=== PATIENT | male | born 1975 | race Caucasian/White ===

== ENCOUNTER 2017-04-08 18:24 | Emergency (ER) | payer OTHER ==
[~2017-04-08] VITALS: Ht 182.9 cm; Wt 117.0 kg
[~2017-04-08 18:24] MED LIST: LISI20TA PO
[2017-04-08 18:27] VITALS: TEMP 36.5; Ht 182.9 cm; Wt 117.0 kg
[2017-04-08] MEDS ORDERED: DOXYCYCLINE HYCLATE 100 MG CAP PO STA (18:47)
[2017-04-08] MEDS ORDERED: DOXY-300 PO (18:51)
[2017-04-08] MEDS ORDERED: METO25TA3 PO (19:01)
[2017-04-08] MEDS ORDERED: METOPROLOL SUCC 50MG EXT REL TAB PO ONE (19:09)
[2017-04-08] MEDS ORDERED: METOPROLOL SUCC 25MG EXT REL TAB PO ONE (19:15)
[2017-04-08 19:55] LABS: LYME DISEASE AB IGM NEG (NEG)
[2017-04-08 19:56] LABS: LYME DISEASE AB IGG NEG (NEG)
[2017-04-08 20:10] VITALS: BP 209/128; PULSE 93; O2SAT 95
--- NOTE | 2017-04-08 21:10 | EMERGENCY ROOM VISIT NOTE ---
ED Visit Note First contact with patient: 18:37 Chief Complaint: Rash. History of Present Illness: Mr. Luu is a 41-year-old white male who ambulates into the ED accompanied by his daughter complaining of a bullet like lesion over the proximal aspect of the medial right humerus. Patient reports he has been doing a lot of her he picking over the last few weeks. He reports he does check himself every night and has not noted any tick bites. Then today he noticed an itchy area over the proximal aspect of the medial right humerus and when he looked at this area it appeared to have a bullet lesion. He did become concerned and came to the emergency department for further evaluation and care. Associated with the lesion he does report his skin is itchy in the area. He has not taken any medication for the actual lesion or the itchiness. He denies any associated symptoms including fevers, chills, sweats, other skin eruptions, other skin color changes, headaches, joint pains, chest pain, shortness of breath, abdominal pain, nausea, vomiting, upper extremity weakness/numbness/ tingling. It is also noticed that while in the emergency department he is hypertensive with a blood pressure of 209/128. When questioned patient does report he takes antihypertensives but doesn't remember their name. He reports he hasn't taken his medication today. He was able to give me the pharmacy number where he gets his medications filled and when this was checked with the medicine reconciliation staff they called the pharmacy and they report he has not refilled his Toprol-XL 25 mg since November of this year. Associated with the patient's hypotension he reports he has not had any fevers including headaches, dizziness, lightheadedness and the symptoms that were noted above. Review of Systems: As noted above in history of present illness. 8 body systems were reviewed and found to be negative as noted above. Past Medical History: As previously noted. Current Medications: As previously noted. Allergies to Medications: Patient denies. Social History: Patient is not employed; he lives with his family and feels safe in his home environment; he denies tobacco and alcohol use. Physical Examination: Vital Signs: Date Time Temp Pulse Resp B/P (MAP) Pulse Ox O2 Delivery O2 Flow Rate FiO2 04/08/17 20:10 93 18 209/128 95 Room Air 04/08/17 18:27 36.5 87 19 209/128 96 Room Air GENERAL: 41-year-old male in no acute distress, nontoxic-appearing, afebrile and hypertensive. NEUROLOGICAL: Awake, alert and oriented to person, place and time. Answering questions appropriately and following commands. Normal gait. Good hand eye coordination. No focal motor or sensory deficits. Cranial nerves II through XII grossly intact. SKIN: Warm, dry and pink. Right Upper Extremity: Over the medial aspect of the proximal humerus patient has a mildly erythematous round lesion with central clearing. No lymphangitis. No warmth or appearance of cellulitis. HEENT: Atraumatic and normocephalic. PERRLA. EOMI. Funduscopic examination shows a normal-appearing disc with no signs of increased intracranial pressure. Sclera white and conjunctiva pink. Airway patent. Speech normal. No carotid bruits. Trachea midline. No jugular venous distention. BACK: No tenderness over the bony spine. No CVA tenderness. THORAX: Lungs sounds are clear to auscultation and equal bilaterally with symmetrical chest wall. No wheezing, rales or rhonchi. No crepitus, tenderness , subcutaneous air or deformities noted. HEART: Regular rate and rhythm. No gallops, rubs or murmurs are appreciated. ABDOMEN: Flat, soft and nontender. Positive bowel sounds in all quadrants. No guarding, rigidity or organomegaly. EXTREMITIES: Moves all extremities well on command and with purpose. All distal neurovascular statuses are intact and equal bilaterally. No calf tenderness or cords. ED Course: Patient is assessed as noted above. Patient's medication list was reviewed. Laboratory Testing: Pending. EKG: Was read by myself and reviewed with Dr. Tejada' shows normal sinus rhythm with a ventricular rate of 64 bpm. Left ventricular hypertrophy was noted. No acute ischemic changes. This was compared to a previous from May 2010 in no acute changes were noted. Patient was given 100 mg of doxycycline by mouth for antibiotic prophylaxis. Patient was given 25 mg of Toprol-XL by mouth. Patient's case was reviewed with Dr. Tejada; we agreed on diagnostic approach, treatment, disposition and plan. Patient was educated about today's findings and instructed on his treatment plan ; he verbalizes understanding and agreement with this plan. Clinical Impression: Erythema migrans. Hypertension. Disposition: Patient discharged home in stable condition; prior to departure he was reassessed and remained pain and symptom-free at this time. Plan: Erythema migrans: Patient was prescribed doxycycline 100 mg 2 times a day for 14 days. Patient was encouraged to follow-up with family physician for recheck and final testing results. Patient was encouraged return to the ED for headaches, vomiting, joint pains, fevers or any new/concerning symptoms. Hypertension Patient was encouraged to take his Toprol every day as prescribed. Patient was encouraged to have close follow-up with his family doctor for recheck of his blood pressure. Patient was encouraged return the ED for any symptoms associated with high blood pressure including headache, dizziness, chest pain, shortness of breath, vomiting or any new/concerning symptoms.
== END 2017-04-08 20:24 | disposition home or self-care (01) ==
LOC: C.EDB 18:25 → C.EDD 20:24
DX: A26.0 Cutaneous erysipeloid (principal); I10 Essential (primary) hypertension

== ENCOUNTER 2020-05-17 12:09 | Observation (INO) ==
[2020-05-17] MEDS ORDERED: SODIUM CHLORIDE 0.9% 1000ML 1,000 ML IV ONE (12:23)
--- NOTE | 2020-05-17 12:37 | Emergency Department Note ---
History of Present Illness General Chief complaint: Swelling/Edema to Extremity Stated complaint: LT LEG SWELLING Time Seen by Provider: 05/17/20 12:23 History of Present Illness Provider complaint: Left leg swelling fever Onset (ago): week(s) 1 Location: lower extremity and left Radiation: non-radiation Pain Consistency: + constant Maximum Pain Intensity: 10 Current Pain Intensity: 10 Quality: + aching Relieved By: + none Associated symptoms: + fever/chills and + rash; no cough, no headaches, no nausea/vomiting, no seizure, no shortness of breath, no syncope and no weakness 44-year-old male presents emergency department for left lower extremity rash and fever. Patient reports that he has had symptoms for the last week. He states he [place] in [place] when a branch scraped him and then he started getting the redness around the scrape. He states he came to the emergency department when he was giving IV antibiotics and also given oral antibiotics, Keflex. He states he has been taking all of his Keflex. He states he does not think it is working as the redness is gotten worse and he developed a fever today. No cough, loss of taste or smell, headache, abdominal pain, vomiting, or drainage from the wound. Home Medications Home Medications Medication Instructions Recorded Confirmed Type cephalexin [Keflex] 500 mg PO QID 10 Days #40 cap 05/12/20 05/17/20 Rx amlodipine 10 mg PO QAM 05/17/20 05/17/20 History chlorthalidone 25 mg PO QAM 05/17/20 05/17/20 History losartan 100 mg PO QAM 05/17/20 05/17/20 History ondansetron HCl [Zofran] 4 mg PO TID PRN 05/17/20 05/17/20 History Allergies Allergy/AdvReac Type Severity Reaction Status Date / Time No Known Allergies Allergy Mild Unverified 05/17/20 13:49 Past Med/Surg History Medical History (Updated 05/17/20 @ 14:18 by Aniket Perera) Abrasion of left lower leg (Acute) Cellulitis of left leg (Acute) Hypertension (Inactive) No pertinent family history Surgical History (Updated 05/17/20 @ 12:34 by Aniket Perera) No pertinent past surgical history Social History Smoking Status: Never smoker Preferred Language: Bangladeshi Feels Safe at Home: Yes Review of Systems A total of 10 systems reviewed and were otherwise negative Physical Exam Vital Signs Vital Signs - 24 hr 05/17/20 12:18 05/17/20 12:31 05/17/20 13:00 Temperature 37.8 C H Temperature Source Oral Pulse Rate 113 H 112 H 106 H Pulse Rate from SpO2 Sensor Respiratory Rate 22 24 Respiratory Effort / Characteristics Non-Labored Respiratory Depth Normal Respiratory Pattern Regular Blood Pressure 173/138 H Blood Pressure Mean 149 Blood Pressure Position Sitting Pulse Oximetry 97 Oxygen Delivery Method Room Air Sepsis Recent Fever Within 48 Hours Yes Sepsis New/Unexplained Change in Mental Status No Sepsis Action Taken by Nursing Physician Notified 05/17/20 13:09 05/17/20 13:10 05/17/20 13:30 Temperature Temperature Source Pulse Rate 108 H 103 H 100 H Pulse Rate from SpO2 Sensor 106 H 103 H 102 H Respiratory Rate 24 Respiratory Effort / Characteristics Respiratory Depth Respiratory Pattern Blood Pressure 182/121 H 192/123 H Blood Pressure Mean 147 149 Blood Pressure Position Pulse Oximetry 96 96 95 Oxygen Delivery Method Sepsis Recent Fever Within 48 Hours Sepsis New/Unexplained Change in Mental Status Sepsis Action Taken by Nursing 05/17/20 13:31 Temperature Temperature Source Pulse Rate 100 H Pulse Rate from SpO2 Sensor 102 H Respiratory Rate 24 Respiratory Effort / Characteristics Respiratory Depth Respiratory Pattern Blood Pressure Blood Pressure Mean Blood Pressure Position Pulse Oximetry 97 Oxygen Delivery Method Sepsis Recent Fever Within 48 Hours Sepsis New/Unexplained Change in Mental Status Sepsis Action Taken by Nursing Physical Exam GENERAL: He is oriented to person, place, and time. He appears well-developed and well-nourished. He does not appear distressed. HENT: Exam performed. - Head: Normocephalic and atraumatic. - Right Ear: External ear normal. No mastoid tenderness. - Left Ear: External ear normal. No mastoid tenderness. - Mouth/Throat: The oropharynx is clear and moist. No trismus in the jaw. No dental abscesses or uvula swelling. No oropharyngeal exudate or tonsillar abscesses. EYES: Conjunctivae and EOM are normal. Pupils are equal, round, and reactive to light. Right eye exhibits no discharge. Left eye exhibits no discharge. No scleral icterus. NECK: Normal range of motion. Neck supple. No JVD present. No spinous process tenderness present. No carotid bruit present. No rigidity. No tracheal deviation and normal range of motion present. No Brudzinski's sign and no Kernig's sign noted. CV: Tachycardic rate, regular rhythm, normal heart sounds and intact distal pulses. There is no peripheral edema. Palpable radial pulses bue. PULM/CHEST: Effort normal and breath sounds normal. No respiratory distress. No stridor. He has no wheezes. He has no rales. - Chest Wall: He exhibits no tenderness. ABD: The abdomen is soft. Bowel sounds are normal. He has no distension. No mass is present. There is no tenderness. There is no rebound, no guarding, no Maddox's sign and no tenderness at McBurney's point. Rovsig negative. MUSC/SKEL: Normal range of motion. There is no peripheral edema, tenderness or deformity. LYMPH: No cervical adenopathy. NEURO: He is alert and oriented to person, place, and time. He has normal strength. No cranial nerve deficit or sensory deficit. Coordination and gait normal. GCS eye subscore is 4. GCS verbal subscore is 5. GCS motor subscore is 6. Cerebellar tests wnl. SKIN: Abrasion over the left lower extremity perez with surrounding erythema. There is no discharge. No fluctuant area. It is warm to touch and tender. Nikolsky negative. No vesicles. Patient's rash is consistent with the appearance of cellulitis. PSYCH: He has a normal mood and affect. Behavior is normal. Judgment and thought content normal. Course Course 1223: The patient was evaluated in room B6. A complete history and physical exam was performed. Patient was found to be febrile and tachycardic on arrival. Sepsis protocols were initiated. Cardiac monitoring: An order was placed for continuous cardiac monitoring. The monitor shows a rate of 116 with sinus tachycardia rhythm EMR reviewed. This is the patient's third visit to the emergency department in the last 5 days. He was seen on the emergency department on May 12, 5 days ago twice. On May 12 he was diagnosed with cellulitis. He had blood work done which was within normal limits. Lyme screening was within normal limits. Patient was discharged with prescription Keflex. Later that evening the patient came into the emergency department with headache. He had a CAT scan of the head which was negative and he was discharged home. Patient refusing rectal temperature. 1334: Labs show minimally elevated white blood cell count of 11.5. Lactic acid within normal limits. Patient treated with vancomycin for cellulitis. Discus sed the case with [facility] hospitalist Dr. Rizvi. Patient will be admitted for cellulitis failed outpatient treatment. Administered Medications Vancomycin HCl 2,250 mg/ (Sodium Chloride) 545 mls @ 200 mls/hr IV NOW ONE Stop: 05/17/20 15:22 Last Admin: 05/17/20 13:10 Dose: 200 mls/hr Documented by: [id number] Discontinued Medications Acetaminophen (Tylenol) 1,000 mg PO NOW STA Stop: 05/17/20 12:41 Last Admin: 05/17/20 12:48 Dose: 1,000 mg Documented by: [id number] Sodium Chloride (Nss 1000ml) 1,000 mls @ 999 mls/hr IV .Q1H1M ONE Stop: 05/17/20 13:23 Last Infusion: 05/17/20 13:45 Dose: 0 mls/hr Documented by: [id number] Admin: 05/17/20 12:48 Dose: 999 mls/hr Documented by: [id number] Medical Decision Making Laboratory Data Result diagrams: 05/17/20 12:37 05/17/20 12:37 Lab Results 05/17/20 05/17/20 05/17/20 Range/Units 12:37 12:37 12:37 WBC 11.54 H (4.8-10.8) K/uL RBC 5.10 (4.7-6.1) M/uL Hgb 15.2 (14.0-18.0) g/dL Hct 43.6 (42-52) % MCV 85.5 (80-100) fL MCH 29.8 (25-34) pg MCHC 34.9 (32-36) g/dL RDW Std Deviation 39.5 (36.4-46.3) fL RDW Coeff of [place] 12.6 (11.5-14.5) % Plt Count 296 (130-400) K/uL MPV 8.9 (7.4-10.4) fL Immature Gran % (Auto) 0.2 % Neut % (Auto) 82.6 % Lymph % (Auto) 9.7 % [place] % (Auto) 6.7 % Eos % (Auto) 0.6 % Baso % (Auto) 0.2 % Neut # (Auto) 9.54 H (1.4-6.5) K/uL Lymph # (Auto) 1.12 L (1.2-3.4) K/uL [place] # (Auto) 0.77 H (0.11-0.59) K/uL Eos # (Auto) 0.07 (0-0.5) K/uL Baso # (Auto) 0.02 (0-0.2) K/uL Immature Gran # (Auto) 0.02 (0.00-0.02) K/uL PT 10.8 (9.0-12.0) Seconds INR 1.0 (0.9-1.1) APTT 32.2 H (21.0-31.0) Seconds PTT Ratio 1.2 Sodium 138 (136-145) mmol/L Potassium 3.5 (3.5-5.1) mmol/L Chloride 100 (98-107) mmol/L Carbon Dioxide 27 (21-32) mmol/L Anion Gap 11.0 (3-11) BUN 12 (7-18) mg/dl Creatinine 0.87 (0.6-1.4) mg/dl Est Cr Clr Drug Dosing 136.2 ml/min Est GFR ( Amer) 120.0 Est GFR (Non-Af Amer) 103.5 BUN/Creatinine Ratio 13.5 (10-20) Glucose 99 (70-99) mg/dl Lactate (0.4-2.0) mmol/L Calcium 9.2 (8.5-10.1) mg/dl Magnesium 2.0 (1.8-2.4) mg/dl Total Bilirubin 0.9 (0.2-1) mg/dl AST 23 (15-37) U/L ALT 23 (12-78) U/L Alkaline Phosphatase 87 (45-117) U/L Total Protein 9.0 H (6.4-8.2) gm/dl Albumin 4.2 (3.4-5.0) gm/dl Globulin 4.8 H (2.5-4.0) gm/dl Albumin/Globulin Ratio 0.9 (0.9-2) /06/28 Range/Units 12:37 WBC (4.8-10.8) K/uL RBC (4.7-6.1) M/uL Hgb (14.0-18.0) g/dL Hct (42-52) % MCV (80-100) fL MCH (25-34) pg MCHC (32-36) g/dL RDW Std Deviation (36.4-46.3) fL RDW Coeff of [place] (11.5-14.5) % Plt Count (130-400) K/uL MPV (7.4-10.4) fL Immature Gran % (Auto) % Neut % (Auto) % Lymph % (Auto) % [place] % (Auto) % Eos % (Auto) % Baso % (Auto) % Neut # (Auto) (1.4-6.5) K/uL Lymph # (Auto) (1.2-3.4) K/uL [place] # (Auto) (0.11-0.59) K/uL Eos # (Auto) (0-0.5) K/uL Baso # (Auto) (0-0.2) K/uL Immature Gran # (Auto) (0.00-0.02) K/uL PT (9.0-12.0) Seconds INR (0.9-1.1) APTT (21.0-31.0) Seconds PTT Ratio Sodium (136-145) mmol/L Potassium (3.5-5.1) mmol/L Chloride (98-107) mmol/L Carbon Dioxide (21-32) mmol/L Anion Gap (3-11) BUN (7-18) mg/dl Creatinine (0.6-1.4) mg/dl Est Cr Clr Drug Dosing ml/min Est GFR ( Amer) Est GFR (Non-Af Amer) BUN/Creatinine Ratio (10-20) Glucose (70-99) mg/dl Lactate 1.1 (0.4-2.0) mmol/L Calcium (8.5-10.1) mg/dl Magnesium (1.8-2.4) mg/dl Total Bilirubin (0.2-1) mg/dl AST (15-37) U/L ALT (12-78) U/L Alkaline Phosphatase (45-117) U/L Total Protein (6.4-8.2) gm/dl Albumin (3.4-5.0) gm/dl Globulin (2.5-4.0) gm/dl Albumin/Globulin Ratio (0.9-2) Imaging Data Radiologist's Impression: SINGLE VIEW CHEST CLINICAL HISTORY: Sepsis. FINDINGS: An AP, portable, upright chest radiograph is compared to study dated 06/08/2010. The heart appears enlarged. The pulmonary vasculature is noncongested. There are low lung volumes. Atelectasis is noted at the lung bases. No airspace consolidation or large pleural effusion is identified. No pneumothorax is seen. The bony thorax is grossly intact. IMPRESSION: Apparent cardiac enlargement with no acute cardiopulmonary abnormality. ACT 112: Negative or not required by law. Electronically signed by: Deonte Perera M.D. 05/17/2020 1:22 PM Dictated: 05/17/20 1319 Transcribed: 05/17/20 1319 ECG Data Indication: + other (Sepsis) Rate (beats per minute): 108 Rhythm: + sinus tachycardia ECG Intervals/blocks: + Normal QRS, + Normal LA and + Normal QT-c ECG ST segments: + Normal ST segments ECG Findings: + LVH MDM Narrative 1223: The patient was evaluated in room B6. A complete history and physical exam was performed. Patient was found to be febrile and tachycardic on arrival. Sepsis protocols were initiated. Cardiac monitoring: An order was placed for continuous cardiac monitoring. The monitor shows a rate of 116 with sinus tachycardia rhythm EMR reviewed. This is the patient's third visit to the emergency department in the last 5 days. He was seen on the emergency department on May 12, 5 days ago twice. On May 12 he was diagnosed with cellulitis. He had blood work done which was within normal limits. Lyme screening was within normal limits. Patient was discharged with prescription Keflex. Later that evening the patient came into the emergency department with headache. He had a CAT scan of the head which was negative and he was discharged home. Patient refusing rectal temperature. 1334: Labs show minimally elevated white blood cell count of 11.5. Lactic acid within normal limits. Patient treated with vancomycin for cellulitis. Discussed the case with [facility] hospitalist Dr. Rizvi. Patient will be admitted for cellulitis failed outpatient treatment. Impression & Plan Cellulitis of left leg Discharge Plan Visit Data Chief Complaint: Swelling/Edema to Extremity Stated Complaint: LT LEG SWELLING ED Provider: Aniket Perera Discharge Problem: Cellulitis of left leg Patient Disposition: Being Evaluated by Hospitalist Forms Stand Alone Forms: [facility] Prescriptions Prescriptions: No Action ondansetron HCl [Zofran] 4 mg tablet 4 mg PO TID PRN (Reason: Nausea And Vomiting) RF: 0 losartan 50 mg tablet 100 mg PO QAM RF: 0 chlorthalidone 25 mg tablet 25 mg PO QAM RF: 0 amlodipine 10 mg tablet 10 mg PO QAM RF: 0 cephalexin [Keflex] 500 mg capsule 500 mg PO QID 10 Days Qty: 40 RF: 0 Referrals Referrals: Edwina Guerrero MD [Primary Care Provider] -
[2020-05-17] MEDS ORDERED: VANCOMYCIN CONSULT ACTIVE PRN (12:39)
[2020-05-17] MEDS ORDERED: VANCOMYCIN HCL 2,250 MG in SODIUM CHLORIDE 0.9% 500 ML IV ONE (12:39)
[2020-05-17] MEDS ORDERED: ACETAMINOPHEN 500 MG TAB PO STA (12:40)
[2020-05-17 12:55] LABS: Basophils # (auto) 0.02 K/uL (0-0.2); Basophils % (auto) 0.2 %; Eosinophils # (auto) 0.07 K/uL (0-0.5); Eosinophils % (auto) 0.6 %; Hematocrit (blood only) 43.6 % (42-52); Hemoglobin 15.2 g/dL (14.0-18.0); Immature Granulocytes # (auto) 0.02 K/uL (0.00-0.02); Immature Granulocytes % (auto) 0.2 %; Lymphocytes # (auto) 1.12 K/uL (1.2-3.4); Lymphocytes % (auto) 9.7 %; Mean Corpuscular Hemoglobin 29.8 pg (25-34); Mean Corpuscular Hgb Conc 34.9 g/dL (32-36); Mean Corpuscular Volume 85.5 fL (80-100); Mean Platelet Volume 8.9 fL (7.4-10.4); Monocytes # (auto) 0.77 K/uL (0.11-0.59); Monocytes % (auto) 6.7 %; Neutrophils # (auto) 9.54 K/uL (1.4-6.5); Neutrophils % (auto) 82.6 %; Platelet Count 296 K/uL (130-400); RDW Coefficient of Variation 12.6 % (11.5-14.5); RDW Standard Deviation 39.5 fL (36.4-46.3); White Blood Count 11.54 K/uL (4.8-10.8)
[2020-05-17 13:06] LABS: Albumin Level 4.2 gm/dl (3.4-5.0); BUN Creatinine Ratio 13.5 (10-20); Calcium 9.2 mg/dl (8.5-10.1); Creatinine Clr Calc Pharmacy 136.2 ml/min; Est GFR (Non-African American) 103.5; Potassium 3.5 mmol/L (3.5-5.1)
[2020-05-17 13:08] LABS: Albumin Globulin Ratio 0.9 (0.9-2); Bilirubin,Total 0.9 mg/dl (0.2-1); Globulin 4.8 gm/dl (2.5-4.0); Partial Thromboplastin Ratio 1.2; Partial Thromboplastin Time 32.2 Seconds (21.0-31.0); Prothrombin Time 10.8 Seconds (9.0-12.0)
--- NOTE | 2020-05-17 13:23 | XRay Report ---
SINGLE VIEW CHEST CLINICAL HISTORY: Sepsis. FINDINGS: An AP, portable, upright chest radiograph is compared to study dated 06/08/2010. The heart a ppears enlarged. The pulmonary vasculature is noncongested. There are low lung volumes. Atelectasis i s noted at the lung bases. No airspace consolidation or large pleural effusion is identified. No pneu mothorax is seen. The bony thorax is grossly intact. IMPRESSION: Apparent cardiac enlargement with no acute cardiopulmonary abnormality. ACT 112: Negative or not required by law. Electronically signed by: Deonte Perera M.D. 05/17/2020 1:22 PM
[2020-05-17 14:23] LABS: Appearance Urine Clear (Clear); Bilirubin Urine Negative (Negative); Blood Urine Negative (Negative); Color Urine Yellow; Glucose Urine UA Negative (Negative); Ketones Urine Negative (Negative); Leukocyte Esterase Urine Negative (Negative); Nitrite Urine Negative (Negative); Protein Urine Negative (Negative); Urobilinogen Urine Negative (Negative); pH Urine 6.5 (4.5-7.5)
[2020-05-17] MEDS ORDERED: LOSARTAN POTASSIUM 50 MG TAB PO STA (16:05)
[2020-05-17] MEDS ORDERED: AMLODIPINE BESYLATE 5 MG TAB PO ONE (16:06)
[2020-05-17] MEDS ORDERED: CHLORTHALIDONE 25 MG TAB PO STA (16:09)
--- NOTE | 2020-05-17 16:22 | History & Physical Report ---
Date of Service May 17, 2020 Assessment & Plan (1) Cellulitis of left leg: Vancomycin given in ER due to concern of failure with keflex, however I am less concerned for MRSA since it appeared to be clearing up almost completely and only became worse when he walked on it excessively. Will get US venous doppler to r/o DVT as possible cause of worsening in addition. Will hold further vancomycin at this stage Start ceftriaxone 2g IV daily (2) Hypertensive urgency: Did not take his routine medication today. Gave amlodipine 10 mg p.o., chlorthalidone 25 mg p.o. and losartan 100 mg p.o. now, then every morning. (3) Nausea & vomiting: Suspect due to hypertensive urgency as above Ondansetron and Phenergan PRN as prescribed (4) Headache: Suspect secondary to hypertensive urgency as above Acetaminophen PRN for pain Admission and Anticipated Discharge Date Admission Date: 05/17/2020 History of Present Illness Chief Complaint: Left leg pain, swelling, redness Primary Care Provider: Edwina Guerrero MD Doyle Luu is a 44 year old male who presents to the ER due to worsening of his previously diagnosed cellulitis. He was previously diagnosed with cellulitis 5 days prior in the ER after a superficial laceration while walking [place] approximately 2 weeks ago. He had increasing redness, swelling and pain and eventually came to the ER 5 days ago when he was prescribed a dose of ceftriaxone and discharged with adequate dosing of Keflex. He reports compliance with taking this and his infection almost completely cleared up. Unfortunately when he started doing heavy lifting and walking on it excessively for the past 2 days and since it has been getting worse again. No drainage or fluids collection. He has never had a DVT. He has not taken any of his blood pressure medication today and in the ER started having increasing headache and high blood pressure. Allergies Allergy/AdvReac Type Severity Reaction Status Date / Time No Known Allergies Allergy Mild Unverified 05/17/20 13:49 Home Medications Home Medications Medication Instructions Recorded Confirmed Type cephalexin [Keflex] 500 mg PO QID 10 Days #40 cap 05/12/20 05/17/20 Rx amlodipine 10 mg PO QAM 05/17/20 05/17/20 History chlorthalidone 25 mg PO QAM 05/17/20 05/17/20 History losartan 100 mg PO QAM 05/17/20 05/17/20 History ondansetron HCl [Zofran] 4 mg PO TID PRN 05/17/20 05/17/20 History Past Med/Surg History Medical History (Updated 05/17/20 @ 16:26 by Peng Rizvi MD) Abrasion of left lower leg (Acute) Cellulitis of left leg (Acute) Hypertension (Inactive) No pertinent family history Surgical History (Updated 05/17/20 @ 16:22 by Peng Rizvi MD) No significant past surgical history Social History Smoking Status: Never smoker Hx Alcohol Use: No Hx Substance Use: No Preferred Language: Scottish Communication Ability: Effective 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 Beliefs That Will Affect Care: Taoist Taoist Beliefs: CONFUCIANIST BUDDHISM Current Living Situation: Family Other Information That Helps Us Care for You: No Feels Safe at Home: Yes Safety Concerns: Feels Safe At This Time Review of Systems Review of Systems: All systems reviewed & are unremarkable except as noted in HPI & below Physical Exam Constitutional: well developed, well nourished and + acute distress (pain in left lower extremity with associated swelling) Eyes: + anicteric sclerae; normal pupil size ENMT: external ear and nose normal, oropharynx normal Neck: trachea midline, no thyromegaly Respiratory: normal respiratory effort, lungs clear to auscultation Cardiovascular: Rate/Rhythm: regular rhythm and + tachycardic Heart Sounds: no murmur Extremities: + pedal edema (LLE around erythematous area 1+) Gastrointestinal (Abdomen): normal bowel sounds, soft, nontender, no hepatosplenomegaly Musculoskeletal: no cyanosis or clubbing, extremities motor strength 5/5 Skin: + erythema (10cm largest dimension erythema distal to scab, swollen, warm) Neurologic: moves all extremities and awake; not confused Psychiatric: A+Ox3, euthymic affect Results & Data Results & Data ([facility]) Vital Signs (Past 12 Hours) Vital Signs Temp Pulse Resp BP Pulse Ox 05/17/20 15:01 108 H 19 95 05/17/20 15:00 105 H 26 H 170/119 H 95 05/17/20 14:31 95 H 24 96 05/17/20 14:30 104 H 25 H 173/113 H 95 05/17/20 14:01 101 H 23 96 05/17/20 14:00 103 H 25 H 176/122 H 94 05/17/20 13:31 100 H 24 97 05/17/20 13:30 100 H 24 192/123 H 95 05/17/20 13:10 103 H 96 05/17/20 13:09 108 H 182/121 H 96 05/17/20 13:00 106 H 05/17/20 12:31 112 H 24 05/17/20 12:18 37.8 C H 113 H 22 173/138 H 97 Diagnostic Findings SINGLE VIEW CHEST IMPRESSION: Apparent cardiac enlargement with no acute cardiopulmonary abnormality. ECG Indication: tachycardia Rate (beats per minute): 108 Rhythm: sinus tachycardia Comparison ECG Date: from (04/08/2017) Change: no significant change Code Status & VTE Plan Code Status Full VTE Prophylaxis Plan VTE Prophylaxis will be ordered: No Reason for no VTE drug order: Treatment not indicated Reason for no VTE mechanical prophylaxis: Treatment not indicated PG Care Time/CCT Total # of Minutes Spent Total Time Spent with Patient: Total time spent is greater than 50% in coordination of care (as documented) at patient's floor/unit and/or counseling patient: Coding Level of Care Code 88603 Initial Inpt Care Lvl 3 Diagnoses Cellulitis of left leg L03.116 Hypertensive urgency I16.0 Nausea & vomiting R11.2 Vomiting Intractability: non-intractable Vomiting type: unspecified Headache R51 Headache chronicity pattern: acute headache Headache type: unspecified Intractability: not intractable (1) Headache Headache chronicity pattern: acute headache Headache type: unspecified Intractability: not intractable Qualified Code(s): R51 - Headache (2) Nausea & vomiting Vomiting Intractability: non-intractable Vomiting type: unspecified Qualified Code(s): R11.2 - Nausea with vomiting, unspecified
--- NOTE | 2020-05-17 16:22 | Electrocardiogram Report ---
Test Reason : Blood Pressure : / mmHG Vent. Rate : 108 BPM Atrial Rate : 108 BPM P-R Int : 156 ms QRS Dur : 104 ms QT Int : 352 ms P-R-T Axes : 037 -22 013 degrees QTc Int : 471 ms Sinus tachycardia Voltage criteria for left ventricular hypertrophy Inferior infarct , age undetermined Abnormal ECG When compared with ECG of 08-APR-2017 19:15, No significant change was found Confirmed by Chele Kaur ([id number]) on 05/17/2020 4:22:14 PM Referred By: REFERRED SELF Confirmed By:Wayne Kaur
[2020-05-17] MEDS ORDERED: ONDANSETRON INJ 2 MG/ML 2 ML VIAL IV STA (17:45)
[2020-05-17] MEDS ORDERED: ONDANSETRON INJ 2 MG/ML 2 ML VIAL IV PRN (18:27)
[2020-05-17] MEDS ORDERED: ACETAMINOPHEN 325 MG TAB PO PRN (18:27)
[2020-05-17] MEDS ORDERED: HydrALAZINE HCL 20 MG/ML VIAL IV PRN ×2 (18:32→21:57)
[2020-05-17] MEDS ORDERED: HYDROmorphone INJ 0.5 MG/0.5 ML SYR IV PRN (18:34)
[2020-05-17] MEDS ORDERED: OXYCODONE HCL IR 5 MG TAB (IMMEDIATE RELEASE) PO PRN (18:34)
[2020-05-17] MEDS ORDERED: HydrALAZINE HCL 20 MG/ML VIAL ONE (18:37)
[2020-05-17] MEDS ORDERED: NITROGLYCERIN 2% OINTMENT 30GM TUBE EXT SCH (18:45)
--- NOTE | 2020-05-17 18:46 | Pharmacy Report ---
Pharmacy Abx Initial Consult - Date of Service May 17, 2020 - Pharmacy Dosing Scope Date of Consult: 05/17/20 Consultation requested by: Dr. Rizvi Pharmacy is consulted to initiate vancomycin IV dosing therapy, order appropriate labs and adjust drug dose/frequency. - Subjective The patient is a 44 year old M admitted on 05/17/20 16:24. - Objective Height: 6 ft Weight: 110.5 kg Vital Signs (Past 12hrs): Vital Signs Temp Pulse Pulse Resp BP BP BP 05/17/20 18:28 36.7 C 103 H 16 187/125 H 191/128 H 05/17/20 17:01 102 H 24 05/17/20 17:00 103 H 20 180/122 H 05/17/20 16:31 110 H 22 05/17/20 16:30 108 H 26 H 185/135 H 05/17/20 16:01 113 H 21 05/17/20 16:00 111 H 22 204/141 H 05/17/20 15:31 107 H 20 05/17/20 15:30 108 H 21 178/130 H 05/17/20 15:01 108 H 19 05/17/20 15:00 105 H 26 H 170/119 H 05/17/20 14:31 95 H 24 05/17/20 14:30 104 H 25 H 173/113 H 05/17/20 14:01 101 H 23 05/17/20 14:00 103 H 25 H 176/122 H 05/17/20 13:31 100 H 24 05/17/20 13:30 100 H 24 192/123 H 05/17/20 13:10 103 H 05/17/20 13:09 108 H 182/121 H 05/17/20 13:00 106 H 05/17/20 12:31 112 H 24 05/17/20 12:18 37.8 C H 113 H 22 173/138 H Pulse Ox 05/17/20 18:28 97 05/17/20 17:01 94 05/17/20 17:00 95 05/17/20 16:31 95 05/17/20 16:30 95 05/17/20 16:01 95 05/17/20 16:00 97 05/17/20 15:31 95 05/17/20 15:30 95 05/17/20 15:01 95 05/17/20 15:00 95 05/17/20 14:31 96 05/17/20 14:30 95 05/17/20 14:01 96 05/17/20 14:00 94 05/17/20 13:31 97 05/17/20 13:30 95 05/17/20 13:10 96 05/17/20 13:09 96 05/17/20 13:00 05/17/20 12:31 05/17/20 12:18 97 Lab Results (24hrs): Laboratory Tests (24 Hours) 05/17/20 05/17/20 12:37 12:37 WBC 11.54 H Neut # (Auto) 9.54 H Creatinine 0.87 Est Cr Clr Drug Dosing 136.2 Micro Results: 05/17/20 13:04 Aerobic Blood Culture - Pending Blood Anaerobic Blood Culture - Pending 05/17/20 12:37 Aerobic Blood Culture - Pending Blood Anaerobic Blood Culture - Pending - Assessment & Plan Assessment 44 year old M ordered empiric vancomycin and ceftriaxone for treatment of worsening LLE cellulitis w/ fever. Patient recently suffered scrape from branch while walking in the [place]. Prescribed cephalexin on 05/12/20, which patient states he has been taking as prescribed. Mild leukocytosis and fever noted at time of admission. Blood cultures x 2 obtained and pending. Plan Vancomycin IV * Estimated PK Parameters: Vd 0.6 L/kg, Chaz > 0.104 hr-1, t1/2 < 6.6 hr * Loading dose: 2250 mg (20 mg/kg) * Maintenance dose: 1250 mg IV (11 mg/kg) every 8 hours * Goal trough level for cellulitis : ~15 * Trough level ordered for 05/18/20 prior to 5th dose Ceftriaxone IV * 2 g IV q24h - no change Pharmacy will continue to follow and will adjust dose/frequency as necessary. Thank you.
[2020-05-17] MEDS: cefTRIAXone SODIUM 2,000 MG in DEXTROSE 5% 50 ML IV SCH (19:47)
[2020-05-17] MEDS ORDERED: VANCOMYCIN HCL 1,250 MG in SODIUM CHLORIDE 0.9% 250 ML IV SCH (21:00)
[2020-05-17] MEDS ORDERED: PROMETHAZINE HCL 25 MG in SODIUM CHLORIDE 0.9% 50 ML IV PRN (21:07)
[2020-05-17] MEDS ORDERED: ACETAMINOPHEN 1,000 MG/100 ML VIAL IV PRN (21:54)
--- NOTE | 2020-05-18 07:18 | Ultrasound Report ---
ULTRASOUND LEFT LOWER EXTREMITY VENOUS CLINICAL HISTORY: Left lower extremity edema. Erythema and swelling. COMPARISON STUDY: No priors. TECHNIQUE: Real-time, grayscale, and color Doppler sonography of the deep veins of the left lower ext remity was performed from the inguinal crease to the calf. Compression and augmentation were utilized . FINDINGS: There is no sonographic evidence of deep venous thrombosis identified in the left lower ext remity. The common femoral, superficial femoral, and popliteal veins are patent and normally compress ible. The greater saphenous vein and the profunda femoris vein at the junction with the common femora l vein are clear. The visualized calf veins are patent. Prominent left inguinal lymph nodes are incid entally noted and likely on a reactive basis. Soft tissue edema is identified in the left calf/ankle at the indicated site of interest. IMPRESSION: There is no sonographic evidence of deep venous thrombosis identified in the left lower e xtremity. ACT 112: Negative or not required by law. Electronically signed by: Deonte Perera M.D. 05/18/2020 7:17 AM
[2020-05-18 07:43] LABS: Basophils # (auto) 0.02 K/uL (0-0.2); Basophils % (auto) 0.1 %; Hematocrit (blood only) 40.6 % (42-52); Hemoglobin 13.7 g/dL (14.0-18.0); Immature Granulocytes # (auto) 0.01 K/uL (0.00-0.02); Immature Granulocytes % (auto) 0.1 %; Mean Corpuscular Hemoglobin 28.8 pg (25-34); Mean Corpuscular Hgb Conc 33.7 g/dL (32-36); Mean Corpuscular Volume 85.5 fL (80-100); Mean Platelet Volume 8.7 fL (7.4-10.4); Monocytes % (auto) 7.6 %; Neutrophils # (auto) 12.01 K/uL (1.4-6.5); Neutrophils % (auto) 83.2 %; Platelet Count 245 K/uL (130-400); RDW Coefficient of Variation 12.7 % (11.5-14.5); RDW Standard Deviation 40.2 fL (36.4-46.3); Red Blood Count 4.75 M/uL (4.7-6.1); White Blood Count 14.44 K/uL (4.8-10.8)
[2020-05-18] MEDS: CHLORTHALIDONE 25 MG TAB PO SCH (07:56)
[2020-05-18] MEDS: LOSARTAN POTASSIUM 50 MG TAB PO SCH (07:56)
[2020-05-18] MEDS: AMLODIPINE BESYLATE 5 MG TAB PO SCH (07:57)
--- NOTE | 2020-05-18 08:05 | Medical Student Progress Note ---
Date of Service May 18, 2020 Assessment & Plan (1) Hypertensive urgency: Pt is 44M with pmhx of HTN admitted for cellulitis of L leg since 2wks ago who failed Keflex and is now stable with 1x IV vancomycin and IV ceftriaxone with improving erythema, decreasing swelling, and less pain compared to admission on 05/17, pending blood culture who was found to be in HTN urgency with BP >180s/100s and headaches, improving with consistent BP meds intake. 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 barriers to health and suggested setting up timer to take his meds daily and verify that he is bringing them with him when working Cr elevation - Today was 1.29 from 0.87 yesterday - considering that his Cr was normal prehospitalization, suspect intrinsic causes - continue to trend N/V - Suspect due to hypertensive urgency as above - Ondansetron and Phenergan PRN as prescribed Headaches Suspect secondary to hypertensive urgency as above Acetaminophen PRN for pain (2) Cellulitis of left leg: (3) Creatinine elevation: (4) Nausea & vomiting: Vomiting Intractability: non-intractable Vomiting type: unspecified Qualified Code(s): R11.2 - Nausea with vomiting, unspecified (5) Headache: Headache chronicity pattern: acute headache Headache type: uns pecified Intractability: not intractable Qualified Code(s): R51 - Headache Supervising Attestation Attending attestation Pt seen and examined in concert with Student Dr. Ferrer. In agreement with the documented findings as noted in the resident documentation with any exceptions or additions as noted here. Improving LLE pain, swelling and erythema subjectively with improved ambulation. Resolution of HARMON and other s/sx of HTN. On examination, S1/S2 nl RRR no MCG. CTAB. Abd NT/ND BS+ve. LLE with 8cm diameter erythematous, warm region distal to healing abrasion c/w cellulitis without fluctuance. Cellulitis - transition to ceftriaxone, await final BCx to transition to PO HTN urgency - stable on home medications. Trend and consider adjustment of ARB therapy Increased creatinine - likely 2/2 hypertensive urgency. Trend BMP, hydrate Else see resident documentation as noted. Subjective Pt admitted on 05/17/20 for LLE swelling, fever, and HTN urgency. He was in hospital x2 on 05/12/20 for LLE rash that occurred 1wk previously when he was scraped by a piece of [place]. On first visit to ER, he was given Rocephin IV and sent home on Keflex PO ([id number]) which he started to have N/V and HARMON that same day and returned back to ED where he got a CT head scan that was normal. He reports that LLE swelling was improving on Keflex, but noticed some warmth and re-swelling again on Monday, 05/16 when he was exerting himself. Pt reports doing good today. Feels that his cellulitis is 70% better than yesterday in regards to decrease in leg temperature, swelling, and pain. He has no LLE pain when laying supine, but when he gets up to walk, there was an aching and throbbing pain which has improved significantly today. He is able to walk to bathroom with no pain today and no pain to touch. When they started IV vancomycin yesterday, he was having some nausea and 1 episode of vomiting that was tx with PRN ondansetron, none today. Pt reports HTN for last couple of years. He states that his BP is usually 170s/80s and he only gets HAs when it is >190s/80s. He is [id number]-biayy driver. Reports no increase in stressors that can contribute to his HTN. He didn't have health insurance for awhile, but was still taking his amlodipine and losartan with no concerns. He just saw his PCP's () nurse back in April and they added chlorthalidone at that time and ordered blood work. He reports to missing 2 doses of his meds weekly and when asked if he missed any dosage in the past days, he states "maybe" and says that he doesn't take his meds consistently because he has been feeling fine. No fhx of HTN but in PCP's n otes that his father had high BP and no DM, or cancers. For last 3 months, he has been intentionally trying to lose weight through exercise and diet. He has reduced the amount of sugar and salt while walking/running 3-4x/wk for 30minutes. He reports losing 10lbs in the last 3 month which he is proud of. Never smoker, vaping, no ETOH. He is and has 4 kids (26-12yo) who are all living at home with him at this time. Review of Systems Constitutional: + weight loss (intentional, working on diet+exercise for last 3 months); no fever, no chills and no fatigue Eyes: no diplopia and no loss of peripheral vision Ear, Nose, Mouth, Throat: no ear pain, no tinnitus, no hearing loss and no dizziness Respiratory: no cough, no dyspnea and no hemoptysis Cardiovascular: no chest pain, no dyspnea at rest, no paroxysmal nocturnal dyspnea, no palpitations, no lightheadedness, no syncope and no calf pain Gastrointestinal: + vomiting (1 episode on 05/17, none today-ondansetron PRN); no nausea Genitourinary: no dysuria, no urinary frequency, no nocturia and no hematuria Musculoskeletal: no back pain, no neck pain and no stiffness Integumentary: + wounds (1cm oval healing scab on LLE above erythema), + erythema (L anteriomedial lower leg/ankle) and + skin swelling Neurologic: no localized weakness, no loss of sensation, no tremor(s), no headache(s) and no memory loss Psychiatric: no hopelessness and no change in appetite Endocrine: no fatigue, no polydipsia and no polyuria Physical Exam Constitutional: cooperative; no acute distress and no altered mental status Eyes: PERRL, conjunctivae normal, anicteric sclerae ENMT: external ear and nose normal, oropharynx normal Neck: trachea midline, no thyromegaly Respiratory: normal respiratory effort, lungs clear to auscultation Cardiovascular: Rate/Rhythm: + tachycardic Heart Sounds: normal S1 and normal S2; no gallop, no murmur and no cardiac rub Vessels: dorsalis pedis pulses present; no carotid bruit, no abdominal aortic bruit and no bounding carotid pulses Extremities: no calf tenderness Gastrointestinal (Abdomen): normal bowel sounds, soft, nontender, no hepatosplenomegaly Musculoskeletal: no cyanosis or clubbing, extremities motor strength 5/5 Skin: + erythema (located on Left distal perez, circumferential about 6cm width +warmth ); no induration, no fluctulance and no mottling Neurologic: PERRL, EOMI, accommodation nl, no face palsy, no dysarthria CN's II-XI intact bilaterally Psychiatric: A+Ox3, euthymic affect Lymphatic: no cervical or axillary lymphadenopathy Results & Data ([facility]) Vital Signs (Past 12 Hours) Vital Signs Temp Pulse Pulse Pulse Resp BP BP 05/18/20 07:24 37.5 C 94 H 18 154/88 H 05/18/20 03:53 36.6 C 97 H 18 114/70 05/18/20 01:35 98 H 05/17/20 23:12 36.6 C 95 H 18 117/69 05/17/20 21:52 38.5 C H 103 H 16 109/64 05/17/20 20:31 112 H 160/97 H Pulse Ox 05/18/20 07:24 94 05/18/20 03:53 94 05/18/20 01:35 05/17/20 23:12 96 05/17/20 21:52 97 05/17/20 20:31
[2020-05-18 08:24] LABS: Albumin Level 3.1 gm/dl (3.4-5.0); BUN Creatinine Ratio 10.8 (10-20); Calcium 8.7 mg/dl (8.5-10.1); Creatinine Clr Calc Pharmacy 91.6 ml/min; Est GFR (African American) 76.6; Est GFR (Non-African American) 66.1
[2020-05-18 08:29] LABS: Albumin Globulin Ratio 0.8 (0.9-2); Globulin 3.9 gm/dl (2.5-4.0)
[2020-05-18] MEDS ORDERED: POTASSIUM CHLORIDE 20 MEQ TABCR PO STA (09:15)
[2020-05-18 09:57] LABS: Estimated Average Glucose 103 mg/dl; Hemoglobin A1C 5.2 % (4.5-5.6)
[2020-05-18] MEDS: cefTRIAXone SODIUM 2,000 MG in DEXTROSE 5% 50 ML IV SCH (19:09)
[2020-05-18] MEDS ORDERED: VANCOMYCIN TROUGH ONE (20:30)
--- NOTE | 2020-05-18 22:14 | Electrocardiogram Report ---
Test Reason : Blood Pressure : / mmHG Vent. Rate : 098 BPM Atrial Rate : 098 BPM P-R Int : 168 ms QRS Dur : 112 ms QT Int : 334 ms P-R-T Axes : 031 -21 -38 degrees QTc Int : 426 ms Normal sinus rhythm Voltage criteria for left ventricular hypertrophy Inferior infarct (cited on or before 17-MAY-2020) T wave abnormality, consider anterolateral ischemia Abnormal ECG When compared with ECG of 17-MAY-2020 12:27, T wave inversion more evident in Inferior leads T wave inversion now evident in Anterolateral leads Confirmed by Cesar Portillo ([id number]) on 05/18/2020 10:14:38 PM Referred By: REFERRED SELF Confirmed By:Cesar Portillo
[2020-05-19 07:14] LABS: Basophils # (auto) 0.01 K/uL (0-0.2); Basophils % (auto) 0.1 %; Eosinophils # (auto) 0.09 K/uL (0-0.5); Eosinophils % (auto) 1.1 %; Hematocrit (blood only) 40.9 % (42-52); Hemoglobin 14.2 g/dL (14.0-18.0); Immature Granulocytes # (auto) 0.01 K/uL (0.00-0.02); Immature Granulocytes % (auto) 0.1 %; Lymphocytes % (auto) 20.7 %; Mean Corpuscular Hemoglobin 29.6 pg (25-34); Mean Corpuscular Hgb Conc 34.7 g/dL (32-36); Mean Corpuscular Volume 85.2 fL (80-100); Mean Platelet Volume 8.8 fL (7.4-10.4); Monocytes # (auto) 0.94 K/uL (0.11-0.59); Monocytes % (auto) 11.4 %; Neutrophils # (auto) 5.46 K/uL (1.4-6.5); Neutrophils % (auto) 66.6 %; Platelet Count 234 K/uL (130-400); RDW Coefficient of Variation 12.6 % (11.5-14.5); RDW Standard Deviation 39.4 fL (36.4-46.3); White Blood Count 8.21 K/uL (4.8-10.8)
[2020-05-19 07:26] LABS: Calcium 8.4 mg/dl (8.5-10.1); Creatinine Clr Calc Pharmacy 102.9 ml/min; Est GFR (African American) 88.9; Est GFR (Non-African American) 76.7; Potassium 3.2 mmol/L (3.5-5.1)
[2020-05-19] MEDS: AMLODIPINE BESYLATE 5 MG TAB PO SCH (08:34)
[2020-05-19] MEDS: CHLORTHALIDONE 25 MG TAB PO SCH (08:34)
[2020-05-19] MEDS: LOSARTAN POTASSIUM 50 MG TAB PO SCH (08:34)
--- NOTE | 2020-05-19 10:54 | Discharge Summary ---
Date of Service May 19, 2020 Admission HPI Per Admitting Provider Doyle Luu is a 44 year old male who presents to the ER due to worsening of his previously diagnosed cellulitis. He was previously diagnosed with cellulitis 5 days prior in the ER after a superficial laceration while walking [place] the [place] approximately 2 weeks ago. He had increasing redness, swelling and pain and eventually came to the ER 5 days ago when he was prescribed a dose of ceftriaxone and discharged with adequate dosing of Keflex. He reports compliance with taking this and his infection almost completely cleared up. Unfortunately when he started doing heavy lifting and walking on it excessively for the past 2 days and since it has been getting worse again. No drainage or fluids collection. He has never had a DVT. He has not taken any of his blood pressure medication today and in the ER s tarted having increasing headache and high blood pressure. Admission Exam Per Admitting Provider Constitutional: well developed, well nourished and + acute distress (pain in left lower extremity with associated swelling) Eyes: + anicteric sclerae; normal pupil size ENMT: external ear and nose normal, oropharynx normal Neck: trachea midline, no thyromegaly Respiratory: normal respiratory effort, lungs clear to auscultation Cardiovascular: Rate/Rhythm: regular rhythm and + tachycardic Heart Sounds: no murmur Extremities: + pedal edema (LLE around erythematous area 1+) Gastrointestinal (Abdomen): normal bowel sounds, soft, nontender, no hepatosplenomegaly Musculoskeletal: no cyanosis or clubbing, extremities motor strength 5/5 Skin: + erythema (10cm largest dimension erythema distal to scab, swollen, warm) Neurologic: moves all extremities and awake; not confused Psychiatric: A+Ox3, euthymic affect Principal Diagnosis Left Leg Cellulitis Hypertensive Urgency Discharge Exam Constitutional WD/WN, vitals as above healthy appearing Eyes PERRL, conjunctivae normal, anicteric sclerae ENMT external ear and nose normal, oropharynx normal Neck trachea midline, no thyromegaly normal visual inspection Respiratory normal respiratory effort, lungs clear to auscultation Cardiovascular RRR, no murmur, no edema Gastrointestinal (Abdomen) normal bowel sounds, soft, nontender, no hepatosplenomegaly Musculoskeletal no cyanosis or clubbing, extremities motor strength 5/5 Gait: normal gait (no foot pain with walking) Skin circumferential erythematous rash on left lower leg, from ankle to distal lower leg, improving with decreasing size, mild warmth, no tenderness on palpation, no discharge, no streaking Psychiatric A+Ox3, euthymic affect Lymphatic no cervical lymphadenopathy Discharge Data Allergies Allergy/AdvReac Type Severity Reaction Status Date / Time No Known Allergies Allergy Mild Unverified 05/17/20 13:49 Consultations 05/17/20 13:34 ED Decision to Admit Stat Ordered Studies 05/17/20 16:06 US venous doppler LE LT Urgent Hospital Course (1) Cellulitis of left leg: Mr. Luu is a 44 yo male with h/o HTN who was admitted on 05/17/2020 for hypertensive urgency and left leg cellulitis. He was started on IV Vancomycin initially, and subsequently transitioned to IV Ceftriaxone for left leg cellulitis given negative MRSA. His cellulitis greatly improved with antibiotics; tenderness resolved, warmth is resolving and area of erythema is decreasing. He was also re-started on all home HTN medications which improved blood pressure; no symptoms of headache, impaired vision or nausea/vomiting during hospitalization. He will be discharged on 05/19/2020 in stable condition, to continue with PO antibiotics for cellulitis and home HTN meds - will follow up with PCP. The patient also had mild hypokalemia of 3.2 on 05/19/2020 and received Potassium chloride 40 mg PO x1. Total Time Total Time Spent Total Time Spent (In Minutes): 30 minutes Total Time Includes: Examination of the Patient, Discharge Planning and Medication Reconciliation Discharge Plan Discharge Items Patient Disposition: Home - Self-Care Reason For Visit: LLE CELLULITIS, HYPERTENSIVE URGENCY Discharge Diagnosis: left leg cellulitis, resolving hypertensive urgency, resolved Condition on Discharge: Good Activity: Resume your previous activity Non-emergency contact: Primary Care Provider Call non-emergency contact if: you have any medication questions, your symptoms worsen, your pain is worsening and you have a fever Follow-up/Referrals: Edwina Guerrero MD [Primary Care Provider] - Diet: Regular Addtl Attending Provider Instructions: You were admitted to [facility] on 05/17/2020 for a superficial skin infection on your left leg (cellulitis) and for symptomatic high blood pressure (hypertensive urgency). In the hospital we started you on IV antibiotics for your skin infection, which led to improvement. We also re- started you on your home blood pressure medications which improved your blood pressure as well as nausea/vomiting. You also had a low blood level of potassium while in the hospital, so we gave you an oral potassium supplement for this. You will be discharged with an oral antibiotic called Cefdinir, and you will need to continue all 3 of your home blood pressure medications. We recommend that you set daily alarms, and ask your family to help you, in order to take your blood pressure medications on a daily basis. You should also continue to check your blood pressure on a daily basis - make sure to be sitting down and resting for at least 5 minutes before checking blood pressure. Pending Studies at Discharge: No Stand-Alone Forms: [facility] [employer], Smoking Cessation Medications and DC Order Prescriptions: New cefdinir 300 mg capsule 300 mg PO BID 10 Days Qty: 20 RF: 0 Continued losartan 50 mg tablet 100 mg PO QAM RF: 0 chlorthalidone 25 mg tablet 25 mg PO QAM RF: 0 amlodipine 10 mg tablet 10 mg PO QAM RF: 0 Discontinued ondansetron HCl [Zofran] 4 mg tablet 4 mg PO TID PRN (Reason: Nausea And Vomiting) RF: 0 cephalexin [Keflex] 500 mg capsule 500 mg PO QID 10 Days Qty: 40 RF: 0 Discharge Orders: Discharge Order (Routine); Ordered 05/19/20 Ordered By: Roscoe Gamble/Other Patient Handouts: Controlling High Blood Pressure, Blood Pressure Check Steps Admission Data Admit Date/Time: 05/17/20 16:24 Attending Provider: Mark Ramirez Admit Provider: Peng Rizvi Primary Care Provider: Edwina Guerrero Other Providers: Peng Rizvi Other Interventions: Discharge Summary Assessment (RN) Last Done: 05/19/20 13:14 DC Date/Time DO NOT enter until pt leaves facility: 05/19/20 14:00 Supervising Physician Co-Signing Physician Notes Attending attestation Pt seen and examined in concert with Dr. Mak. In agreement with the documented findings as noted in the resident documentation with any exceptions or additions as noted here. Continued improvement with WB pain and redness subjectively. On examination, S1/S2 nl RRR no MCG. CTAB. Abd NT/ND BS+ve. Fading erythema with decreased pain and induration and warmth of the LLE Cellulitis of the LLE - complete course of cefdinir, monitor and f/u with PCP HTN urgency - improved on home regimen and tolerating well without symptoms - strongly encouraged adherence to regimen and coordination with PCP for f/u. Else see resident documentation as noted. Resident Activity Tracking Resident Involvement: Resident Care Provided Care Provided: Adult Hospital Medicine
[2020-05-19 12:08] VITALS: PULSE 75; TEMP 98.4; O2SAT 96
[2020-05-19] MEDS ORDERED: POTASSIUM CHLORIDE 20 MEQ TABCR PO STA (12:14)
[2020-05-19 13:18] VITALS: BP 143/92
== END 2020-05-19 14:00 | disposition home or self-care (01) ==
LOC: 2W 12:09 → ED 12:09 → SUATTDRO 16:24 → 2W 17:20

== ENCOUNTER 2024-01-15 14:52 | Observation (INO) ==
[2024-01-15 16:06] LABS: Hematocrit (blood only) 42.2 % (42.0-52.0); Hemoglobin 14.9 g/dl (14.0-18.0); Mean Corpuscular Hemoglobin 29.3 pg (25.0-34.0); Mean Corpuscular Hgb Conc 35.3 g/dL (32.0-36.0); Mean Corpuscular Volume 83.1 fL (80.0-100.0); Mean Platelet Volume 9.3 fL (9.4-12.4); Platelet Count 237 K/uL (130-400); RDW Standard Deviation 36.7 fL (36.4-46.3); Red Blood Count 5.08 M/uL (4.70-6.10); White Blood Count 6.52 K/ul (4.8-10.8)
[2024-01-15 16:08] LABS: Albumin Globulin Ratio 1.4 (0.9-2); Albumin Level 4.2 gm/dl (3.4-5.0); BUN Creatinine Ratio 13.9 (10-20); Bilirubin,Total 0.8 mg/dl (0.2-1.0); Calcium 9.3 mg/dl (8.6-10.3); Creatinine Clr Calc Pharmacy 100.6 ml/min; Est GFR (African American) 85.5 ml/min; Est GFR (Non-African American) 73.8 ml/min; Globulin 2.9 gm/dl (2.5-4.0); Magnesium 1.8 mg/dl (1.7-2.4); Potassium 3.4 mmol/L (3.5-5.1); Total Protein 7.1 gm/dl (6.0-8.3)
--- NOTE | 2024-01-15 16:15 | XRay Report ---
XR chest 1V portable CLINICAL HISTORY: stroke alert TECHNIQUE: Single frontal radiograph of the chest was obtained. Comparison: Comparison is made to chest radiograph 02/27/2023 FINDINGS: No lines and tubes are seen. The aorta is tortuous. The remainder of the cardiomediastinal silhouette is unremarkable. The lungs are clear. No evidence of pleural effusion or pneumothorax. IMPRESSION: No acute chest disease. ACT 112: Negative or not required by law. Electronically signed by: Justin Mora M.D. 01/15/2024 4:14 PM
[2024-01-15 16:17] LABS: Partial Thromboplastin Time 29 Seconds (21-31); Prothrombin Time 11.3 Seconds (9.0-12.0)
--- NOTE | 2024-01-15 16:32 | Emergency Department Note ---
History of Present Illness General Chief complaint: Stroke/CVA Symptoms Stated complaint: STROKE LIKE SYMPTOMS,NUMBNESS,HIGH BLOOD WI Time Seen by Provider: 01/15/24 16:19 Source: patient, family (Daughter was at the bedside), RN notes reviewed and old records reviewed (03/2023-primary care office visit for hypertension management) Mode of arrival: ambulatory Limitations: no limitations History of Present Illness Maximum Pain Intensity: 6 This patient is a 48-year-old male who comes in after having high blood pressure and tingling in his left arm and leg since Monday. His daughter said that he had a cold last week sore throat runny nose headache and seem to gotten better but his blood pressure started getting elevated she says is actually been elevated for last couple months. Monday second when he felt tingling in his left arm and a little bit in the leg no difficulty speaking or swallowing no fever no fall or trauma. The headache gets worse when his blood pressure gets high. Home Medications Medication Instructions Recorded Confirmed Type olmesartan 40 mg tablet 40 mg PO QAM 05/30/23 01/15/24 History Allergies Allergy/AdvReac Type Severity Reaction Status Date / Time mushroom AdvReac Severe Vomiting Verified 01/15/24 18:16 Past Med/Surg History Medical History Encounter for pre-operative examination Hyperlipidemia HX - No current medications Cellulitis of left leg 2020 treated at [facility] with abx. 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: No Beliefs That Will Affect Care: Episcopalian Episcopalian Beliefs: RELIGIOUS SIKH Current Living Situation: Spouse Feels Safe at Home: No Is there a partner from a previous relationship who is making you feel unsafe now?: No Assistive Devices: None Review of Systems A total of 10 systems reviewed and were otherwise negative Physical Exam Vital Signs Vital Signs - 24 hr 01/15/24 14:58 01/15/24 16:53 01/15/24 17:46 Temperature 36.5 C Temperature Source Temporal Artery Scan Pulse Rate 116 H 92 H 94 H Pulse Rhythm Regular Pulse Strength Normal Respiratory Rate 20 Respiratory Effort / Characteristics Non-Labored Spontaneous Respiratory Depth Normal Respiratory Pattern Regular Blood Pressure 200/122 H 189/125 H Blood Pressure Mean 148 Blood Pressure Position Sitting Pulse Oximetry 97 Oxygen Delivery Method Room Air Sepsis Recent Fever Within 48 Hours No Sepsis New/Unexplained Change in Mental Status No Sepsis Action Taken by Nursing No Action Required General: Well developed well nourished in no acute distress, breathing comfortably on room air. Normal speech HEENT: Normal cephalic atraumatic. Pupils are equal round and reactive to light. Extraocular movements are intact. Oropharynx is pink with moist mucous membranes. No swelling of the mouth lips or tongue. Neck: Supple with a midline trachea. No meningeal signs or stiffness, no JVD or bruits. No Stridor. Chest: Clear to auscultation bilaterally. No wheezes or rhonchi. No increased work of breathing. Heart: Regular rate and rhythm without murmurs or gallops. Abdomen: Soft nontender, nondistended without rebound guarding or rigidity. Extremities: No cyanosis clubbing or edema. No calf tenderness or assymetry Spine/Back. Non tender to palpation. No CVA tenderness Skin: Good turgor without rashes. Neurologic exam: Cranial nerves two through 12 are intact. Motor and sensation are intact and symmetrical throughout. Course Administered Medications Atorvastatin Calcium (Atorvastatin 40 Mg Tab) [facility] Stop: 02/14/24 21:47 Last Admin: 01/15/24 23:11 Dose: 80 mg Documented By: SRW Spironolactone (Spironolactone 25 Mg Tab) 25 mg PO [id number] [facility] Stop: 02/14/24 21:47 Last Admin: 01/15/24 23:10 Dose: 25 mg Documented By: SRW Discontinued Medications Aspirin (Aspirin 81 Mg Chew) 324 mg PO NOW STA Stop: 01/15/24 17:08 Last Admin: 01/15/24 17:46 Dose: 324 mg Documented By: CPB Gadobutrol (Gadobutrol 65ml Vial) 11.5 ml IV ONCE ONE Stop: 01/15/24 22:58 Last Admin: 01/15/24 22:58 Dose: 11.5 ml Documented By: [facility] Labetalol HCl (Labetalol Hcl Iv 5 Mg/Ml 20ml) 10 mg IV NOW STA Stop: 01/15/24 17:08 Last Admin: 01/15/24 17:46 Dose: 10 mg Documented By: CPB Co-signed By: SAMANTHA Medical Decision Making Differential Diagnosis Hypertensive urgency/emergency, stroke, intracranial process, electrolyte or metabolic abnormality, cardiac disease Medical Records Attestation: I reviewed the patient's medical records. Home Medications Current Medication List: was personally reviewed by me Laboratory Data Attestation: I reviewed the patient's lab results. 01/15/24 15:15 01/15/24 15:15 Lab Results 01/15/24 Range/Units 15:15 WBC 6.52 (4.8-10.8) K/ul RBC 5.08 (4.70-6.10) M/uL Hgb 14.9 (14.0-18.0) g/dl Hct 42.2 (42.0-52.0) % MCV 83.1 (80.0-100.0) fL MCH 29.3 (25.0-34.0) pg MCHC 35.3 (32.0-36.0) g/dL RDW Std Deviation 36.7 (36.4-46.3) fL RDW Coeff of [place] 12.0 (11.5-14.5) % Plt Count 237 (130-400) K/uL MPV 9.3 L (9.4-12.4) fL PT 11.3 (9.0-12.0) Seconds INR 1.0 (0.9-1.1) APTT 29 (21-31) Seconds PTT Ratio 1.0 Sodium 140 (136-145) mmol/L Potassium 3.4 L (3.5-5.1) mmol/L Chloride 104 (98-107) mmol/L Carbon Dioxide 28 (21-32) mmol/L Anion Gap 8 (3-11) BUN 16 (6-23) mg/dl Creatinine 1.15 (0.6-1.4) mg/dl Est Cr Clr Drug Dosing 100.6 ml/min Est GFR ( Amer) 85.5 ml/min Est GFR (Non-Af Amer) 73.8 ml/min BUN/Creatinine Ratio 13.9 (10-20) Glucose 121 H (70-99(Fasting)) mg/dl Calcium 9.3 (8.6-10.3) mg/dl Magnesium 1.8 (1.7-2.4) mg/dl Total Bilirubin 0.8 (0.2-1.0) mg/dl AST 16 (13-39) U/L ALT 11 (7-52) U/L Alkaline Phosphatase 68 (34-104) U/L Total Protein 7.1 (6.0-8.3) gm/dl Albumin 4.2 (3.4-5.0) gm/dl Globulin 2.9 (2.5-4.0) gm/dl Albumin/Globulin Ratio 1.4 (0.9-2) Imaging Data Attestation: I personally reviewed and interpreted this imaging study as follows: My Impression: Chest x-rayno acute infiltrate, failure, pneumothorax seen Radiologist's Impression: Chest X-Ray 01/15/24 15:00 XR chest 1V portable CLINICAL HISTORY: stroke alert TECHNIQUE: Single frontal radiograph of the chest was obtained. Comparison: Comparison is made to chest radiograph 02/27/2023 FINDINGS: No lines and tubes are seen. The aorta is tortuous. The remainder of the cardiomediastinal silhouette is unremarkable. The lungs are clear. No evidence of pleural effusion or pneumothorax. IMPRESSION: No acute chest disease. ACT 112: Negative or not required by law. Electronically signed by: Justin Mora M.D. 01/15/2024 4:[address] 01/15/24 15:00 CT head/brain wo con CLINICAL HISTORY: Neuro deficit, acute, stroke suspected Technique: Contiguous axial CT images of the head were acquired from the base of the skull to the vertex without intravenous contrast administration. Images were viewed in brain, subdural and bone windows. Automated dose lowering techniques and/or adjustment according to patient size were utilized for this exam. Comparison: Comparison is made to CT head 05/12/2020 Findings: The ventricles, basal cisterns, and cerebral sulci are normal. There is no acute intracranial hemorrhage or evidence of acute territorial infarction. Neither mass effect, shift of the midline structures, nor abnormal extra-axial fluid collections are shown. Imaged portions of the paranasal sinuses and mastoid air cells are clear. The orbits appear normal. There are no acute fractures of the calvaria or scalp swelling. Impression: No acute intracranial hemorrhage, no evidence of acute territorial infarction or other acute intracranial disease process. ACT 112: Negative or not required by law. Electronically signed by: Justin Mora M.D. 01/15/2024 4:54 PM ECG Data Attestation: I personally reviewed and interpreted this ECG as follows: Indication: + weakness Rate (beats per minute): 92 Rhythm: + normal sinus ECG Intervals/blocks: + Normal QRS, + Normal QT and + Normal WI ECG Ione: + Normal ECG ST segments: + Normal ST segments ECG Findings: + LVH; no PACs or no PVCs Comparison ECG Date: from (02/27/2023) Change: no significant change MDM Narrative This patient comes in as scribed above. He is having some tingling in his left arm since Monday . he has a history of hypertension. His pressure in triage was significantly elevated 200/122 when he went to evaluate him he was actually back in CAT scan and I talked to his daughter at length who gave the history initially. I reviewed his EKG shows no ischemic changes his labs are unremarkable is no sign of anemia no acute electrolyte or metabolic abnormalities chest x-ray is unremarkable. I did ask our charge nurse to move him back to room so we could monitor his blood pressure and neurologic symptoms closer when he gets back from CAT scan. He was moved to a monitored bed. When I saw him in the monitor bed his blood pressure was still elevated and he was given labetalol 10 mg IV as well as aspirin. I do not want to lower his blood pressure too much but just a little bit. He has a normal neurologic exam with the exception of subjective tingling in his left hand and leg that has been going on. I am concerned about a central neurologic process he is well outside the window for any intervention. He will be admitted for further treatment and evaluation. I discussed the case in consultation with the [facility] [address] hospitalist Continuous engine monitor: Orders placed in EMR for continuous cardiac monitoring, upon my evaluation patient noted to be in normal sinus rhythm rate of 75 Impression & Plan Stroke-like symptoms, Hypertension, Numbness and tingling in left arm, Numbness and tingling of left leg Discharge Plan Visit Data Chief Complaint: Stroke/CVA Symptoms Stated Complaint: STROKE LIKE SYMPTOMS,NUMBNESS,HIGH BLOOD WI ED Provider: Seth Colby Discharge Problem: Stroke-like symptoms, Hypertension, Numbness and tingling in left arm, Numbness and tingling of left leg Patient Disposition: Admitted As Inpatient Discharge Instructions Interventions: ED Discharge Assessment Last Done: 01/15/24 21:33
--- NOTE | 2024-01-15 16:55 | CT Scan Report ---
CT head/brain wo con CLINICAL HISTORY: Neuro deficit, acute, stroke suspected Technique: Contiguous axial CT images of the head were acquired from the base of the skull to the donald sussy without intravenous contrast administration. Images were viewed in brain, subdural and [facility]. Automated dose lowering techniques and/or adjustment according to patient size were utilized for this exam. Comparison: Comparison is made to CT head 05/12/2020 Findings: The ventricles, basal cisterns, and cerebral sulci are normal. There is no acute intracranial hemorrh age or evidence of acute territorial infarction. Neither mass effect, shift of the midline structures , nor abnormal extra-axial fluid collections are shown. Imaged portions of the paranasal sinuses and mastoid air cells are clear. The orbits appear normal. There are no acute fractures of the calvaria or scalp swelling. Impression: No acute intracranial hemorrhage, no evidence of acute territorial infarction or other acute intracra nial disease process. ACT 112: Negative or not required by law. Electronically signed by: Justin Mora M.D. 01/15/2024 4:54 PM
[2024-01-15] MEDS: LABETALOL HCL IV 5 MG/ML 20ML IV STA (17:46)
[2024-01-15] MEDS: ASPIRIN 81 MG CHEW PO STA (17:46)
--- NOTE | 2024-01-15 18:10 | History & Physical Report ---
Date of Service January 15, 2024 Assessment & Plan (1) Hypertensive urgency: Plan: 48yo Male with PMH HTN HLD here for concern hypertensive urgency and new left sided numbness. Stroke rule out -new left sided numbness -NIHSS stroke scale 0 -CT head negative -in ED received ASA 324mg -admit to obs med/tele -neuro checks -MRI head ordered -CT angio head neck ordered -dysphagia screen ordered -PT/OT ordered -continue daily ASA 81mg -if symptoms develop or large vessel disease noted on CT angio add plavix 300mg one dose followed by 75mg daily HTN -on admit 200/122 -received labetolol 10mg IV in ED -continue home amlodipine 10mg, olmesartan 40mg -added spironolactone 25mg BID -PRN labetalol for systolic over 200 -may consider sleep study in outpatient given history resistant HTN. Would also benefit from low salt diet HLD -cholesterol 248 last year -repeat lipid panel ordered -started on atorvastatin 80mg daily FENa: heart healthy Code Status: full DVT PPX: lovenox PT/OT: ordered Dispo: med/tele obs Margaret Coreas D.O. PGY 3, FCM (2) Atherogenic dyslipidemia: (3) Numbness and tingling in left arm: History of Present Illness Chief Complaint: HTN urgency Primary Care Provider: Edwina Guerrero MD 48yo Male with PMH HTN HLD here for concern hypertensive urgency and new left sided numbness. Patient states his BP has been chronically elevated, he was on 3 blood pressure medications however one was stopped due to excess urination, currently on amlodipine and olmesartan, he is taking his medication regularly. Patient states he had a cold last week, Monday noticed new left sided numbness of face arms and legs that would come and go, not always in the same locations. This has persisted until now, today developed increasing nausea headache home BP check systolic over 200, was brought to ED. In ED was given labetalol 10mg IV and ASA 324, BP improved to 160's/110's headache has slightly improved. Patient denies during this time period any weakness confusion SOB chest pain abd pain. Currently AOx3. Pleasant, interactive. Family member acting as occasional asl interpreter. Not currently on potassium supplements. Has occasional scoring, denies apnea. States at one point he had an US of his abd, not sure for what. Allergies Allergy/AdvReac Type Severity Reaction Status Date / Time mushroom AdvReac Severe Vomiting Verified 01/15/24 18:16 Home Medications Medication Instructions Recorded Confirmed Type olmesartan 40 mg tablet 40 mg PO QAM 05/30/23 01/15/24 History Past Med/Surg History Medical History Encounter for pre-operative examination Hyperlipidemia HX - No current medications Cellulitis of left leg 2020 treated at [facility] with abx. Hypertension Surgical History No significant past surgical history Family History Other No family history of adverse response to anesthesia Social History Smoking Status: Never smoker Second Hand Exposure: No; Do You Dip or Chew Tobacco: No; Hx Alcohol Use: No Hx Substance Use: No Preferred Language: [place] Communication Ability: Effective Interpretive Naturalist Required: No Beliefs That Will Affect Care: Mu-Ism Mu-Ism Beliefs: PENTECOSTAL LATTER-DAY Current Living Situation: Spouse and Family Feels Safe at Home: Yes Assistive Devices: None Physical Exam Constitutional: WD/WN, vitals as above Eyes: PERRL, conjunctivae normal, anicteric sclerae ENMT: external ear and nose normal, oropharynx normal Neck: trachea midline, no thyromegaly Respiratory: normal respiratory effort, lungs clear to auscultation Cardiovascular: RRR, no murmur, no edema Skin: no rashes, warm and dry Neurologic: PERRL, EOMI, accommodation nl, no face palsy, no dysarthria normal touch/pain/proprioception, CN's II-XI intact bilaterally and moves all extremities Psychiatric: A+Ox3, euthymic affect Results & Data Results & Data Vital Signs (Past 12 Hours) Vital Signs Temp Pulse Resp BP Pulse Ox O2 Del Method 01/15/24 17:46 94 H 189/125 H 01/15/24 16:53 92 H 01/15/24 14:58 36.5 C 116 H 20 200/122 H 97 Room Air Supervising Physician Co-Signing Physician Notes I personally examined the patient and verified all stuart points of history and exam, discussed case, and agree with decision making with Dr Joss Stiles sided numbness for about 2 days. uncontrolled HTN. no motor weakness vitals noted nad heent nc at mmm breathing unlabored no accessory muscles good effort skin no rashes no pallor or icterus CT head, labs noted last lipids and A1c noted L sided paresthesiae - main ddx being small vessel / hypertensive mediated CVA vs less likely CVA of other mechanism vs less likely other (RIND, non [employer]PER causes - although seems quite unlikely) --->asa; ABCD2 doesn't meet for DAPT; asked night team to watch for CT angio - if significant findings then plavix load tonight / start DAPT -CT angio, MRI brain, echo, repeat lipids (quite high a year ago) and A1c. allow some degree of permissive HTN but given refractory BP will want to see at least some improvement prior to dc -discussed overview of importance of lifestyle as well - asked pt and family to review typical eating/exercise habits for further discussion and coaching DVT proph - lovenox otherwise as above Resident Activity Tracking Resident Involvement: Resident Care Provided Care Provided: Adult Hospital Medicine
--- NOTE | 2024-01-15 19:02 | Billing Data ---
Date of Service January 15, 2024 Coding Level of Care Code 74397 INT INP/OBS CARE
[2024-01-15] MEDS ORDERED: LABETALOL HCL IV 5 MG/ML 20ML IV PRN (21:48)
[2024-01-15] MEDS ORDERED: PHARMACIST DISCHARGE MED REC CONSULT PRN (21:48)
[2024-01-15] MEDS ORDERED: oxyCODONE/ACETAMINOPHEN 5mg/325mg TAB PO PRN (21:48)
[2024-01-15] MEDS: GADOBUTROL 65ML VIAL IV ONE (22:58)
[2024-01-15] MEDS: SPIRONOLACTONE 25 MG TAB PO SCH (23:10)
[2024-01-15] MEDS: ATORVASTATIN 40 MG TAB PO SCH (23:11)
--- NOTE | 2024-01-16 | Magnetic Resonance Report ---
Exam(s): MRI HEAD W/WO Contrast IV Amt: 11.5CC GADAVIST EXAM: MR Head Without and With Intravenous Contrast CLINICAL HISTORY: Reason for exam: left sided paresthesiae. TECHNIQUE: Magnetic resonance images of the head/brain without and with intravenous contrast in multiple planes. CONTRAST: Patient received 11.5CC GADAVIST of IV contrast COMPARISON: Comparison made to prior head CT from January 15, 2024. FINDINGS: Brain: There is a tiny acute ischemic injury of the right medulla oblongata. There is a dilated perivascular space or remote lacunar infarct of the left thalamus. Mild nonspecific white matter changes. The flow voids at the base of the brain are intact. No mass. No hemorrhage. Large left choroidal fissure cyst. Ventricles: Unremarkable. No ventriculomegaly. Bones/joints: Unremarkable. No acute fracture. Sinuses: Unremarkable as visualized. No acute sinusitis. Mastoid air cells: There is a small amount of fluid in the right mastoid air cells. No mastoid effusion. There is a small amount of fluid in the left petrous apex. Orbits: Unremarkable as visualized. IMPRESSION: There is a tiny acute ischemic injury within the right medulla oblongata. Recommend CT angiogram of the head and neck for further evaluation. Communications: Verify Receipt Electronically signed by: Ce Corral MD 01/15/24 23:58 PM
--- NOTE | 2024-01-16 06:05 | Electrocardiogram Report ---
Test Reason : Blood Pressure : / mmHG Vent. Rate : 092 BPM Atrial Rate : 092 BPM P-R Int : 166 ms QRS Dur : 108 ms QT Int : 354 ms P-R-T Axes : 045 -29 -31 degrees QTc Int : 437 ms Normal sinus rhythm Moderate voltage criteria for LVH, may be normal variant Inferior infarct (cited on or before 17-MAY-2020) Cannot rule out Anterior infarct (cited on or before 27-FEB-2023) T wave abnormality, consider inferolateral ischemia Abnormal ECG When compared with ECG of 27-FEB-2023 12:28, Incomplete right bundle branch block is no longer Present Confirmed by Cesar Portillo ([id number]) on 01/16/2024 6:04:48 AM Referred By: Confirmed By:Cesar Portillo
[2024-01-16 07:16] LABS: Basophils # (auto) 0.04 K/uL (0.00-0.20); Basophils % (auto) 0.6 %; Eosinophils # (auto) 0.19 K/uL (0.00-0.50); Eosinophils % (auto) 2.7 %; Hematocrit (blood only) 39.6 % (42.0-52.0); Hemoglobin 13.8 g/dl (14.0-18.0); Immature Granulocytes # (auto) 0.01 K/uL (0.01-0.20); Immature Granulocytes % (auto) 0.1 %; Lymphocytes # (auto) 2.19 K/uL (1.20-3.40); Lymphocytes % (auto) 30.9 %; Mean Corpuscular Hemoglobin 29.1 pg (25.0-34.0); Mean Corpuscular Hgb Conc 34.8 g/dL (32.0-36.0); Mean Corpuscular Volume 83.5 fL (80.0-100.0); Mean Platelet Volume 9.2 fL (9.4-12.4); Monocytes # (auto) 0.49 K/uL (0.11-0.59); Monocytes % (auto) 6.9 %; Neutrophils # (auto) 4.17 K/uL (1.40-6.50); Neutrophils % (auto) 58.8 %; Platelet Count 208 K/uL (130-400); RDW Coefficient of Variation 11.9 % (11.5-14.5); RDW Standard Deviation 36.5 fL (36.4-46.3); Red Blood Count 4.74 M/uL (4.70-6.10); White Blood Count 7.09 K/ul (4.8-10.8)
[2024-01-16 07:22] LABS: iSTAT Creatinine 1.3 mg/dl (0.6-1.3); iSTAT Hemoglobin 14.6 g/dl (14.0-18.0); iSTAT Ionized Calcium 1.18 mmol/l (1.12-1.32); iSTAT Potassium 3.4 mmol/L (3.3-5.0)
--- NOTE | 2024-01-16 07:24 | Hospitalist Progress Note ---
Date of Service January 16, 2024 Assessment & Plan (1) Hypertensive urgency: Plan: Doyle is a 48 year old male with a past medical history of hypertension and hyperlipidemia with concerns for hypertensive urgency and stroke presenting with only mild left upper and lower extremity numbness. His hypertension is improved but not controlled this AM, but he is not experiencing headaches and does not have any worsened stroke-like symptoms. Stroke rule out Left sided numbness on presentation to the ED 01/14, received ASA [address] head negative, MRI showed tiny acute ischemic injury of the right medulla oblongata. Currently no concerning signs of stroke progression. -CT angio head neck ordered -PT/OT -continue daily ASA 81mg Hypertension On admit BP 200/122. Received 10 mg IV labetalol in the ED. Added spironolactone 25 mg BID and labatolol prn for systolic over 200. He seems unaware of what foods have high levels of salt in them. -patient education about heart healthy diet (Mediterranean) -consider sleep study given hx resistant hypertension -continue home amlodipine 10mg, olmesartan 40mg. start spironolactone 25 mg bid on discharge HLD Cholesterol 248 last year, started on atorvastatin 80 mg daily. BMI 34.6 -repeat lipid panels showed cholesterol 169, triglycerides 131, elevated LDL (107), low HDL (36) -patient education about exercise, difficult because of being busy with work -continue atorvastatin 80 mg daily on discharge FENa: heart healthy Code Status: full DVT PPX: lovenox PT/OT: ordered Dispo: med/tele obs (2) Atherogenic dyslipidemia: (3) Numbness and tingling in left arm: Admission and Anticipated Discharge Date Admission Date: January 15, 2024 Subjective Doyle is feeling well this AM. He still has slight numbness of his left hand and foot, same as yesterday. He does not have any headache this AM. He confirmed that he has never smoked and does not drink. He denies chest pain, difficulty breathing, dizziness, shortness of breath, and feeling like his heart is beating too quickly. He is wondering when he can leave. Review of Systems Review of Systems: Negative except as noted above. Physical Exam Constitutional: Alert and oriented, in no acute distress. Respiratory: Lungs clear to auscultation bilaterally, no wheezing, rales, or rhonchi. Cardiovascular: Regular rate and rhythm, no murmurs, rubs, or gallops. Neurologic: No facial asymmetry on inspection. CN VII intact. Sensation intact in the upper and lower extremities to light touch. Speech clear and fluent. Results & Data Results & Data Vital Signs (Past 12 Hours) Vital Signs Temp Pulse Pulse Resp BP BP BP 01/16/24 07:21 61 01/16/24 04:00 36.5 C 63 18 149/87 H 01/16/24 01:34 79 01/15/24 22:10 164/98 H 01/15/24 21:52 36.4 C L 75 18 189/121 H 01/15/24 21:30 73 14 172/113 H 01/15/24 21:00 83 22 170/119 H 01/15/24 20:30 81 21 150/115 H 01/15/24 20:00 76 22 162/128 H 01/15/24 19:31 75 18 171/127 H 01/15/24 19:30 70 19 171/127 H Pulse Ox O2 Del Method 01/16/24 07:21 01/16/24 04:00 96 Room Air 01/16/24 01:34 01/15/24 22:10 01/15/24 21:52 96 Room Air 01/15/24 21:30 98 01/15/24 21:00 95 01/15/24 20:30 94 01/15/24 20:00 97 01/15/24 19:31 95 01/15/24 19:30 95
[2024-01-16 07:31] LABS: Estimated Average Glucose 100 mg/dl; Hemoglobin A1C 5.1 % (4.5-5.6)
[2024-01-16 07:43] LABS: BUN Creatinine Ratio 20.7 (10-20); Calcium 8.7 mg/dl (8.6-10.3); Chol HDL Ratio 4.7 (0-5); Creatinine Clr Calc Pharmacy 141.5 ml/min; Est GFR (African American) 119.5 ml/min; Est GFR (Non-African American) 103.1 ml/min; Potassium 3.4 mmol/L (3.5-5.1)
[2024-01-16] MEDS: ASPIRIN 81 MG ECTAB PO SCH (08:52)
[2024-01-16] MEDS: LOSARTAN POTASSIUM 50 MG TAB PO SCH (08:52)
[2024-01-16] MEDS: ENOXAPARIN INJ 40 MG/0.4 ML SYR SQ SCH (08:52)
[2024-01-16] MEDS: amLODIPine BESYLATE 5 MG TAB PO SCH (08:52)
[2024-01-16] MEDS: OPTIRAY 320 125ml IV ONE (10:11)
--- NOTE | 2024-01-16 10:35 | CT Scan Report ---
NECK CTA HISTORY: left sided paresthesia TECHNIQUE: Multiaxial CT images of the neck were performed following the intravenous administration o f contrast to evaluate the major cervical vessels. 3D/MIP images were also obtained. Sagittal and cor onal reformats were reviewed. All measurements were calculated based on NASCET criteria. A dose low ering technique was utilized adhering to the principles of ALARA. COMPARISON STUDY: Brain MRI 01/15/2024. FINDINGS: The aortic arch and proximal great vessels are widely patent. There is no significant sten osis, occlusion, or dissection identified within the bilateral common carotid, internal carotid, or c ervical vertebral arteries. Mild calcified plaque within the bilateral carotid bifurcations. Focal ar ea of high-grade stenosis within the distal right vertebral artery just proximal to the basilar arter y. IMPRESSION: 1. Focal area of high-grade stenosis within the distal right vertebral artery just proximal to the ba silar artery. 2. Otherwise, no significant stenosis, occlusion, or dissection identified within the carotid or cerv ical vertebral arteries. ACT 112: Negative or not required by law. Electronically signed by: Srinath Cardenas M.D. 01/16/2024 10:34 AM
--- NOTE | 2024-01-16 11:01 | CT Scan Report ---
CT angio head w con CLINICAL HISTORY: 48 years-old Male with L sided paresthesiae. Acute strokelike symptoms COMPARISON STUDY: Brain MRI 01/15/2024 TECHNIQUE: Following the IV administration of 119 cc of Optiray, CT angiogram of the brain was perfor med from the skull base to the vertex. Images are reviewed in the axial, sagittal, and coronal planes . 3-D MIPS images are created and assessed. IV contrast was administered without complication. All me asurements were obtained according to NASCET criteria. A dose lowering technique was utilized adherin g to the principles of ALARA. FINDINGS: CT ANGIOGRAM OF THE BRAIN: The imaged bilateral internal carotid arteries are patent. The bilateral anterior and middle cerebral arteries are also patent. There is a shift focal short segment area of high-grade stenosis in the di stal V4 segment of the right vertebral artery just proximal to the basilar confluence. Areas of moder ate luminal narrowing noted throughout the right posterior cerebral artery. Mild to moderate stenosis noted within the left posterior cerebral artery. There is no aneurysm, dissection or proximal branch occlusion identified. Dural sinuses appear patent. Mild polypoid mucosal thickening of the maxillary sinuses. Dental. Focal cysts. IMPRESSION: 1. Focal area of high-grade stenosis of the distal V4 segment right vertebral artery with areas of mo derate stenosis with additional multifocal stenoses within the posterior cerebral arteries. 2. Otherwise unremarkable CTA of the head. ACT 112: Negative or not required by law. The above report was generated using voice recognition software. It may contain grammatical, syntax o r spelling errors. Electronically signed by: Eleuterio Lehman M.D. 01/16/2024 10:59 AM
--- NOTE | 2024-01-16 12:14 | Discharge Summary ---
Date of Service January 16, 2024 Admission HPI Per Admitting Provider 48yo Male with PMH HTN HLD here for concern hypertensive urgency and new left sided numbness. Patient states his BP has been chronically elevated, he was on 3 blood pressure medications however one was stopped due to excess urination, currently on amlodipine and olmesartan, he is taking his medication regularly. Patient states he had a cold last week, Monday noticed new left sided numbness of face arms and legs that would come and go, not always in the same locations. This has persisted until now, today developed increasing nausea headache home BP check systolic over 200, was brought to ED. In ED was given labetalol 10mg IV and ASA 324, BP improved to 160's/110's headache has slightly improved. Patient denies during this time period any weakness confusion SOB chest pain abd pain. Currently AOx3. Pleasant, interactive. 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 Not currently on potassium supplements. Has occasional scoring, denies apnea. States at one point he had an US of his abd, not sure for what. Admission Exam Per Admitting Provider Constitutional: WD/WN, vitals as above Eyes: PERRL, conjunctivae normal, anicteric sclerae ENMT: external ear and nose normal, oropharynx normal Neck: trachea midline, no thyromegaly Respiratory: normal respiratory effort, lungs clear to auscultation Cardiovascular: RRR, no murmur, no edema Skin: no rashes, warm and dry Neurologic: PERRL, EOMI, accommodation nl, no face palsy, no dysarthria normal touch/pain/proprioception, CN's II-XI intact bilaterally and moves all extremities Psychiatric: A+Ox3, euthymic affect Principal Diagnosis CVA Discharge Exam Constitutional: well-appearing, no acute distress HEENT: NCAT, no conjunctival injection CV: regular rhythm, no murmur appreciated, extremities well-perfused, no LE edema Resp: CTABL, no wheezes/rales/rhonchi appreciated, no increased work of breathing GI: soft, nondistended, nontender, BS normoactive MSK: no gross deformities appreciated Skin: warm, dry, no rash appreciated Neuro: alert, oriented, no focal neurologic deficit appreciated Discharge Data Allergies Allergy/AdvReac Type Severity Reaction Status Date / Time mushroom AdvReac Severe Vomiting Verified 01/15/24 18:16 Consultations 01/15/24 17:59 ED Decision to Admit Stat Ordered Studies 01/15/24 15:00 CT head/brain wo con Stat 01/15/24 21:48 CT angio head w con Routine CT angio neck with con Routine MR brain wo/w con Routine Chest X-Ray 01/15/24 15:00 XR chest 1V portable CLINICAL HISTORY: stroke alert TECHNIQUE: Single frontal radiograph of the chest was obtained. Comparison: Comparison is made to chest radiograph 02/27/2023 FINDINGS: No lines and tubes are seen. The aorta is tortuous. The remainder of the cardiomediastinal silhouette is unremarkable. The lungs are clear. No evidence of pleural effusion or pneumothorax. IMPRESSION: No acute chest disease. ACT 112: Negative or not required by law. Electronically signed by: Justin Mora M.D. 01/15/2024 4:[address] 01/15/24 15:00 CT head/brain wo con CLINICAL HISTORY: Neuro deficit, acute, stroke suspected Technique: Contiguous axial CT images of the head were acquired from the base of the skull to the vertex without intravenous contrast administration. Images were viewed in brain, subdural and bone windows. Automated dose lowering techniques and/or adjustment according to patient size were utilized for this exam. Comparison: Comparison is made to CT head 05/12/2020 Findings: The ventricles, basal cisterns, and cerebral sulci are normal. There is no acute intracranial hemorrhage or evidence of acute territorial infarction. Neither mass effect, shift of the midline structures, nor abnormal extra-axial fluid collections are shown. Imaged portions of the paranasal sinuses and mastoid air cells are clear. The orbits appear normal. There are no acute fractures of the calvaria or scalp swelling. Impression: No acute intracranial hemorrhage, no evidence of acute territorial infarction or other acute intracranial disease process. ACT 112: Negative or not required by law. Electronically signed by: Justin Mora M.D. 01/15/2024 4:54 PM Brain MRI 01/15/24 21:48 CR Exam(s): MRI HEAD W/WO Contrast IV Amt: 11.5CC GADAVIST EXAM: MR Head Without and With Intravenous Contrast CLINICAL HISTORY: Reason for exam: left sided paresthesiae. TECHNIQUE: Magnetic resonance images of the head/brain without and with intravenous contrast in multiple planes. CONTRAST: Patient received 11.5CC GADAVIST of IV contrast COMPARISON: Comparison made to prior head CT from January 15, 2024. FINDINGS: Brain: There is a tiny acute ischemic injury of the right medulla oblongata. There is a dilated perivascular space or remote lacunar infarct of the left thalamus. Mild nonspecific white matter changes. The flow voids at the base of the brain are intact. No mass. No hemorrhage. Large left choroidal fissure cyst. Ventricles: Unremarkable. No ventriculomegaly. Bones/joints: Unremarkable. No acute fracture. Sinuses: Unremarkable as visualized. No acute sinusitis. Mastoid air cells: There is a small amount of fluid in the right mastoid air cells. No mastoid effusion. There is a small amount of fluid in the left petrous apex. Orbits: Unremarkable as visualized. IMPRESSION: There is a tiny acute ischemic injury within the right medulla oblongata. Recommend CT angiogram of the head and neck for further evaluation. Communications: Verify Receipt Electronically signed by: Ce Corral MD 01/15/24 23:58 PM Head CTA 01/15/24 21:48 CT angio head w con CLINICAL HISTORY: 48 years-old Male with L sided paresthesiae. Acute strokelike symptoms COMPARISON STUDY: Brain MRI 01/15/2024 TECHNIQUE: Following the IV administration of 119 cc of Optiray, CT angiogram of the brain was performed from the skull base to the vertex. Images are reviewed in the axial, sagittal, and coronal planes. 3-D MIPS images are created and assessed. IV contrast was administered without complication. All measurements were obtained according to NASCET criteria. A dose lowering technique was utilized adhering to the principles of ALARA. FINDINGS: CT ANGIOGRAM OF THE BRAIN: The imaged bilateral internal carotid arteries are patent. The bilateral anterior and middle cerebral arteries are also patent. There is a shift focal short segment area of high-grade stenosis in the distal V4 segment of the right vertebral artery just proximal to the basilar confluence. Areas of moderate luminal narrowing noted throughout the right posterior cerebral artery. Mild to moderate stenosis noted within the left posterior cerebral artery. There is no aneurysm, dissection or proximal branch occlusion identified. Dural sinuses appear patent. Mild polypoid mucosal thickening of the maxillary sinuses. Dental. Focal cysts. IMPRESSION: 1. Focal area of high-grade stenosis of the distal V4 segment right vertebral artery with areas of moderate stenosis with additional multifocal stenoses within the posterior cerebral arteries. 2. Otherwise unremarkable CTA of the head. ACT 112: Negative or not required by law. The above report was generated using voice recognition software. It may contain grammatical, syntax or spelling errors. Electronically signed by: Eleuterio Lehman M.D. 01/16/2024 10:59 AM Neck CTA 01/15/24 21:48 NECK CTA HISTORY: left sided paresthesia TECHNIQUE: Multiaxial CT images of the neck were performed following the intravenous administration of contrast to evaluate the major cervical vessels. 3D/MIP images were also obtained. Sagittal and coronal reformats were reviewed. All measurements were calculated based on NASCET criteria. A dose lowering technique was utilized adhering to the principles of ALARA. COMPARISON STUDY: Brain MRI 01/15/2024. FINDINGS: The aortic arch and proximal great vessels are widely patent. There is no significant stenosis, occlusion, or dissection identified within the bilateral common carotid, internal carotid, or cervical vertebral arteries. Mild calcified plaque within the bilateral carotid bifurcations. Focal area of high- grade stenosis within the distal right vertebral artery just proximal to the basilar artery. IMPRESSION: 1. Focal area of high-grade stenosis within the distal right vertebral artery just proximal to the basilar artery. 2. Otherwise, no significant stenosis, occlusion, or dissection identified within the carotid or cervical vertebral arteries. ACT 112: Negative or not required by law. Electronically signed by: Srinath Cardenas M.D. 01/16/2024 10:34 AM Hospital Course (1) Hypertensive urgency: (2) Hypokalemia: (3) Stroke: Blane Kwon is a 48 year old male with a past medical history of hypertension and hyperlipidemia with concerns for hypertensive urgency and stroke presenting with only mild left upper and lower extremity numbness. His hypertension is improved but not controlled this AM, but he is not experiencing headaches and does not have any worsened stroke-like symptoms. CVA Left sided numbness on presentation to the ED 01/14, received ASA [address] head negative, MRI showed tiny acute ischemic injury of the right medulla oblongata. Currently no concerning signs of stroke progression. -CT angio head neck ordered -continue daily ASA 81mg Hypertension On admit BP 200/122. Received 10 mg IV labetalol in the ED. Added spironolactone 25 mg BID and labatolol prn for systolic over 200. He seems unaware of what foods have high levels of salt in them. -patient education about heart healthy diet (Mediterranean) -consider sleep study given hx resistant hypertension -continue home amlodipine 10mg, olmesartan 40mg. start spironolactone 25 mg bid on discharge HLD Cholesterol 248 last year, started on atorvastatin 80 mg daily. BMI 34.6 -repeat lipid panels showed cholesterol 169, triglycerides 131, elevated LDL (107), low HDL (36) -patient education about exercise, difficult because of being busy with work -continue atorvastatin 80 mg daily on discharge Total Time Total Time Spent Total Time Spent (In Minutes): >30 mins Discharge Plan Discharge Items Patient Disposition: Home - Self-Care Reason For Visit: HTN URGENCY Discharge Diagnosis: Stroke Activity: Resume your previous activity Non-emergency contact: Primary Care Provider Call non-emergency contact if: you have any medication questions, your pain is concerning for you and your temperature is above 101.5 Follow-up/Referrals: Edwina Guerrero MD [Primary Care Provider] - 01/19/24 9:30 am Diet: Regular Addtl Attending Provider Instructions: You were admitted to the hospital for stroke. A discharge summary will be sent to your primary care physician to ensure co ntinuity of care. Please bring this discharge summary with you to your next office appointment so that your provider can review it at that time. Follow-up appointments: * Make a follow-up appointment with your PCP within the next week. It is very important that you follow up with them shortly after discharge from the hospital. * Keep all your follow-up appointments as already scheduled. If you cannot make an appointment, notify your provider. Medications: Your medication list has been reviewed and reconciled upon discharge to ensure accuracy and continuity of care. An updated list of all your medications is included with your hospital discharge paperwork. Please review this list closely, and make note of any changes. * We sent a new medication called amlodipine to your pharmacy. Take amlodipine 10 mg once a day. * We sent a new medication called aspirin to your pharmacy. Take aspirin 81 mg once a day. * We sent a new medication called atorvastatin to your pharmacy. Take atorvastatin 80 mg once a day. * Was sent a medication called spironolactone to your pharmacy. Take spironolactone 25 mg twice a day. * Take your medications as instructed; do not skip a dose of your medicines. Make sure all of your doctors know every medicine you are taking (including airh-mnc-luduinf medicines, vitamins, and supplements). Call your primary care provider before taking any new medicines (including over- the-counter medicines, vitamins, and supplements), because some of these may interact with your current medications, or may make your symptoms worse. Tell your primary care provider if you cannot afford your medications. CONTACT YOUR PRIMARY CARE PROVIDER if you experience any of the following: * Worsening of symptoms * Fever, chills, or fatigue * Difficulty following your treatment plan, or difficulty taking medications CALL 911 OR GO TO THE EMERGENCY DEPARTMENT if you experience any of the following: * Sudden, severe abdominal pain or nausea/vomiting * Severe chest pain, or chest pain that radiates (moves) to your jaw or arm * Sudden, severe shortness of breath or difficulty breathing Thank you for allowing us to participate in your care. Pending Studies at Discharge: No Stand-Alone Forms: My [facility] [employer], Smoking Cessation, Medications to Prevent Stroke Medications and DC Order Prescriptions: New atorvastatin 40 mg Tablet 80 mg PO QAM 30 Days Qty: 60 0RF amlodipine [Norvasc] 5 mg Tablet 10 mg PO QAM 30 Days Qty: 60 0RF aspirin 81 mg Tablet,Delayed Release (Dr/Ec) 81 mg PO DAILY 30 Days Qty: 30 0RF spironolactone 25 mg Tablet 25 mg PO BID17 30 Days Qty: 30 0RF Continued olmesartan 40 mg tablet 40 mg PO QAM Discharge Orders: Discharge Order (Routine); Ordered 01/16/24 Ordered By: Deonte Irving Admission Data Admit Date/Time: 01/15/24 18:15 Attending Provider: Maxim Thorpe Admit Provider: Margaret Coreas Primary Care Provider: Edwina Guerrero Other Providers: Peng Rizvi Other Interventions: Discharge Summary Assessment (RN) Last Done: 01/16/24 13:00 Supervising Physician Co-Signing Physician Notes I personally examined the patient and verified all stuart points of history and exam, discussed case, and agree with decision making with Dr Irving Feeling okay and would like to go home. Extensive discussion on stroke, its meaning, apparent root cause with him (hypertensive small vessel disease), incidental finding (vertebral artery stenosis), med management for secondary risk reduction, and lifestyle management for secondary risk reduction. He expressed good understanding, 2 family members were present who also were active participants in the conversation and expressed understanding as well. Vitals noted, in general he is awake and alert pleasant no distress. HEENT normocephalic atraumatic mucous membranes moist. Breathing unlabored no accessory muscle use good effort. Skin shows no rashes no pallor or icterus. strokemild left-sided numbness, appears to have been intracranial atherosclerosis/small vessel disease related predominantly on hypertension, as well as dyslipidemia. ABCD2 is low, and while he has a vertebral stenosis, it does not appear to be a culprit lesiontherefore there is no clear role for dual antiplateletsaspirin daily. Atorvastatin 80 mg daily. Blood pressure control. (blood pressure has been still fairly elevated, but trending towards better control, and not wanting to create iatrogenic harm, will discharge home w ith his somewhat improved control allowing for a time for permissive hypertension, and then close PCP follow-upadded spironolactone). Extensive discussion on lifestyle modification (eating and exercise were the heaviest points of emphasis). Otherwise as above. Resident Activity Tracking Resident Involvement: Resident Care Provided Care Provided: Adult Hospital Medicine
[2024-01-16] MEDS ORDERED: STROKE PATIENT DISCHARGE STA (12:45)
--- NOTE | 2024-01-16 13:17 | Pharmacy Report ---
- Date of Service January 16, 2024 - Pharmacy CVA/TIA Medication Review Medications to Prevent Stroke handout has been added to the patients discharge packet. Antiplatelet(s) * aspirin 81mg daily Cholesterol * High intensity statin: atorvastatin 80 mg daily DVT Prophylaxis * Enoxaparin SQ Therapeutic Anticoagulation * No history of Afib/Aflutter noted Type 2 Diabetes * Patient does not have T2DM
--- NOTE | 2024-01-16 18:49 | Billing Data ---
Date of Service January 16, 2024 Coding Level of Care Code 17381 INP/OBS DISCH >30 MIN
--- NOTE | 2024-01-17 09:53 | Pharmacy Report ---
Pharmacist Stroke Counseling - Date of Service January 17, 2024 - Scope: Pharmacy has been consulted to provide medication discharge counseling for this patient admitted with ischemic stroke as per the Pharmacist Discharge Counseling for Stroke Patients Protocol. - Medications on Discharge: Home Medications Medication Instructions Recorded Confirmed olmesartan 40 mg tablet 40 mg PO QAM 05/30/23 01/15/24 New Rx's Medication Instructions Recorded amlodipine 5 mg tablet (Norvasc) 10 mg (2 x 5 mg) PO QAM 30 days 01/16/24 #60 tabs aspirin 81 mg tablet,delayed 81 mg PO DAILY 30 days #30 tabs 01/16/24 release atorvastatin 40 mg tablet 80 mg (2 x 40 mg) PO QAM 30 days 01/16/24 #60 tabs spironolactone 25 mg tablet 25 mg PO BID17 30 days #30 tabs 01/16/24 - Action: The above medications, specifically ones for stroke treatment/prophylaxis, have been reviewed in detail with the patient and/or patient parts representative(s) prior to discharge. This includes indication, common adverse reactions, drug interactions, and medication administration. Medication counseling has been employed using the teach-back method to ensure understanding. - Outcome: The patient and/or patient parts representative(s) have demonstrated understanding of the medications. Additional comments: * Patient confirmed pick-up of medications from outpatient pharmacy * Reviewed indications, administration instructions, adverse reactions, and warnings/precautions w/ patient * Patient does have blood pressure cuff at home. Encouraged him to check at least once per day and to record values for PCP. Patient agreeable. * No barriers to medication compliance identified during interview. Thank you for allowing pharmacy to be involved in the care of this patient. Please call [phone] with any additional questions
== END 2024-01-16 13:52 | disposition home or self-care (01) ==
LOC: EDINP 14:52 → ED 14:52 → 2N 21:33